=== PATIENT | male | born 1960 | race Caucasian/White ===

== ENCOUNTER 2017-03-05 01:38 | Inpatient (IN) | payer OTHER, MEDICAID ==
[2017-03-05 03:53] LABS: ADD MAN DIFF? NO
[2017-03-05] MEDS: LORAZEPAM 2 MG INJ IV ×3 (04:04→07:19)
[2017-03-05] MEDS: DILTIAZEM 25 MG INJ IV (04:04)
[2017-03-05] MEDS: SOD CHLORIDE 0.9% 1,000 ML IV ×3 (04:04→09:27)
[2017-03-05 04:25] LABS: BASOPHILS % 0.3 % (0.0-2.0); EOSINOPHILS % 0.2 % (0.0-7.0); HEMOGLOBIN 14.9 g/dl (14.0-18.0); LYMPHOCYTES # 2.3 10^3/ul (0.8-2.9); LYMPHOCYTES % 15.1 % (15.0-51.0); MEAN CORPUSCULAR HGB CONC 36.3 g/dl (32.0-37.0); MEAN CORPUSCULAR VOLUME 82.5 fl (82.0-101.0); MEAN PLATELET VOLUME 10.8 fl (7.4-10.4); MONOCYTE # 1.4 10^3/ul (0.3-0.9); MONOCYTES % 9.3 % (0.0-11.0); NEUTROPHIL # 11.4 10^3/ul (1.6-7.5); NEUTROPHILS % 74.2 % (39.0-77.0); PLATELET COUNT 311 10^3/UL (140-415); RED BLOOD COUNT 4.97 10^6/ul (4.70-6.10); RED CELL DISTRIBUTION WIDTH 13.3 % (11.5-14.5)
[2017-03-05 04:25] LABS: WHITE BLOOD COUNT 15.4 10^3/ul (4.8-10.8)
[2017-03-05 04:29] LABS: ALANINE AMINOTRANSFERASE 45 IU/L (13-69); ALBUMIN 4.1 g/dl (3.3-4.9); ALBUMIN/GLOBULIN RATIO 1.36; ALKALINE PHOSPHATASE 108 IU/L (42-121); ANION GAP 17 (8-16); ASPARTATE AMINO TRANSFERASE 29 IU/L (15-46); BILIRUBIN,INDIRECT 0.6 mg/dl (0-1.1); BILIRUBIN,TOTAL 0.6 mg/dl (0.2-1.3); BLOOD UREA NITROGEN 11 mg/dl (7-20); CALCIUM 9.2 mg/dl (8.4-10.2); CARBON DIOXIDE 24 mmol/L (21-31); CHLORIDE 85 mmol/L (97-110); CREATININE 0.72 mg/dl (0.61-1.24); GLUCOSE 294 mg/dl (70-220); POTASSIUM 3.2 mmol/L (3.5-5.1); SODIUM 123 mmol/L (135-144); TOTAL PROTEIN 7.1 g/dl (6.1-8.1)
[2017-03-05 04:37] LABS: B-TYPE NATRIURETIC PEPTIDE 3120 PG/ML (0-125)
[2017-03-05 04:41] LABS: TROPONIN-I 0.086 ng/ml (0.00-0.12)
[2017-03-05 05:09] LABS: AMPHETAMINE/METHAMPHETAMINE Negative (NEGATIVE); BARBITURATES Negative (NEGATIVE); BENZODIAZEPINES Negative (NEGATIVE); CANNABINOIDS Negative (NEGATIVE); COCAINE Negative (NEGATIVE); OPIATES Negative (NEGATIVE)
[2017-03-05] MEDS: AMIODARONE 150MG/D5W BOLUS 100 ML IV (06:00)
[2017-03-05] MEDS ORDERED: NALOXONE (0.4 MG/ML) INJ IV (06:00)
[2017-03-05] MEDS ORDERED: NITROGLYCERIN (SL) 0.4 MG TAB SL (06:00)
[2017-03-05] MEDS ORDERED: ONDANSETRON 4 MG INJ IV (06:00)
[2017-03-05] MEDS ORDERED: AMIODARONE 900 MG in DEXTROSE 5% 482 ML IV (06:00)
[2017-03-05] MEDS ORDERED: GLUCOSE GEL 15 GRAM TUBE BUCCAL (06:30)
[2017-03-05] MEDS: NALOXONE (0.4 MG/ML) INJ IV (06:30)
[2017-03-05] MEDS ORDERED: GLUCAGON 1 MG INJ IM (06:30)
[2017-03-05] MEDS ORDERED: DEXTROSE 50% 50 ML SYRINGE IV ×3 (06:30→10:30)
[2017-03-05] MEDS ORDERED: GLUCOSE GEL 15 GRAM TUBE PO ×2 (06:30)
[2017-03-05] MEDS ORDERED: METOPROLOL 5 MG INJ (06:56)
[2017-03-05] MEDS: METOPROLOL 5 MG INJ IV (07:15)
[2017-03-05] MEDS ORDERED: ESMOLOL 250 ML IV (08:00)
[2017-03-05 08:25] LABS: URIC ACID 3.8 mg/dl (3.1-7.9)
[2017-03-05] MEDS: ESMOLOL 100 MG INJ IV (08:25)
[2017-03-05] MEDS: IOHEXOL 100 ML (08:45)
[2017-03-05] MEDS: SOD CHLORIDE 0.9% 100 ML (08:45)
[2017-03-05] MEDS: IPRATROPIUM (NEB) 0.5 MG/2.5 ML AMP NEB (09:00)
[2017-03-05] MEDS: PROPOFOL 100 ML IV ×2 (09:26→21:16)
[2017-03-05] MEDS: AMIODARONE 900 MG in DEXTROSE 5% 482 ML IV (09:27)
[2017-03-05 09:51] LABS: AADO2 Arterial 588.6 mmHg (7.0-24.0); Allen Test ACCEPTAB; Arterial Base Excess -7.2 mmol/L (-3.0-3); Arterial Blood Gas Oxygen Sat 94.3 mmHG (95.0-98.0); Arterial COHb 0.3 % (0.0-3.0); Arterial Fraction of Oxyhgb 93.8 % (93.0-99.0); Arterial HCO3 19.5 mmol/L (22.0-26.0); Arterial MetHb 0.2 % (0.0-1.5); Arterial Total Hemglobin 16.5 g/dl (12.0-18.0); Arterial pCO2 43.5 mmhg (35-45); Blood Gas Low PEEP Setting 0 cmH2O; MODE VENT - AC; Site Right Radial
[2017-03-05] MEDS: INSULIN ASPART [NOVOLOG] 3 ML PEN SC ×2 (09:52→21:00)
[2017-03-05] MEDS: INSULIN GLARGINE [LANtus] 3 ML PEN SC (09:54)
[2017-03-05] MEDS: FAMOTIDINE 20 MG INJ IV ×2 (10:00→21:09)
[2017-03-05 10:35] LABS: INR 1.29; PROTIME 16.3 Sec (11.9-14.9); PT RATIO 1.3
[2017-03-05 10:36] LABS: PARTIAL THROMBOPLASTIN TIME 26.5 Sec (25.0-35.0)
[2017-03-05] MEDS: ACCU-CHEK XX ×14 (10:41→23:30)
[2017-03-05 10:48] LABS: ANION GAP 19 (8-16); BLOOD UREA NITROGEN 12 mg/dl (7-20); CALCIUM 7.8 mg/dl (8.4-10.2); CARBON DIOXIDE 20 mmol/L (21-31); CHLORIDE 87 mmol/L (97-110); CREATININE 0.82 mg/dl (0.61-1.24); POTASSIUM 3.5 mmol/L (3.5-5.1); SODIUM 122 mmol/L (135-144)
[2017-03-05 11:09] LABS: GLUCOSE 408 mg/dl (70-220)
[2017-03-05 11:51] LABS: OSMOLALITY 263 mOsm/kg (280-295)
[2017-03-05] MEDS: INSULIN HUMAN REGULAR 100 UNIT in SOD CHLORIDE 0.9% 99 ML IV (12:13)
[2017-03-05] MEDS: NORepinephrine 8MG/250 ML (PMX 250 ML IV (13:00)
[2017-03-05 13:33] LABS: AADO2 Arterial 535.6 mmHg (7.0-24.0); Allen Test ACCEPTAB; Arterial Base Excess -4.9 mmol/L (-3.0-3); Arterial Blood Gas Oxygen Sat 98.6 mmHG (95.0-98.0); Arterial COHb 0.1 % (0.0-3.0); Arterial Fraction of Oxyhgb 98.3 % (93.0-99.0); Arterial HCO3 19.5 mmol/L (22.0-26.0); Arterial MetHb 0.2 % (0.0-1.5); Arterial Total Hemglobin 16.7 g/dl (12.0-18.0); Arterial pCO2 34.7 mmhg (35-45); MODE VENT - AC; Site Right Radial
[2017-03-05] MEDS ORDERED: VANCOMYCIN IV PER PHARMACY XX (14:00)
[2017-03-05] MEDS ORDERED: NORepinephrine 8MG/250 ML (PMX 250 ML (14:01)
[2017-03-05 14:18] LABS: MAGNESIUM 2.1 mg/dl (1.7-2.5)
[2017-03-05] MEDS: PIPER-TAZO 2.25 GM (PMX) 50 ML IVPB ×3 (14:39→17:27)
[2017-03-05] MEDS ORDERED: ROCURONIUM 50 MG INJ (16:00)
[2017-03-05] MEDS ORDERED: ETOMIDATE 20 MG INJ (16:00)
[2017-03-05 16:11] LABS: POTASSIUM,URINE RANDOM 32.7 mmol/L (25-125)
[2017-03-05 16:13] LABS: SODIUM,URINE RANDOM < 13 mmol/L (30-90)
[2017-03-05 16:14] LABS: OSMOLALITY,URINE 437 mOsm/kg (250-1200)
[2017-03-05] MEDS: VANCOMYCIN 1.75 GM in NS 500 ML IVPB (17:26)
[2017-03-05] MEDS ORDERED: PROPOFOL 100 ML (21:06)
[2017-03-06] MEDS: ACCU-CHEK XX ×10 (00:30→08:33)
[2017-03-06] MEDS: PIPER-TAZO 2.25 GM (PMX) 50 ML IVPB ×5 (00:56→23:43)
[2017-03-06] MEDS: INSULIN ASPART [NOVOLOG] 3 ML PEN SC ×6 (00:56→21:00)
[2017-03-06] MEDS: PROPOFOL 100 ML IV ×6 (01:02→22:30)
[2017-03-06] MEDS ORDERED: ACCU-CHEK XX (02:00)
[2017-03-06] MEDS: NORepinephrine 8MG/250 ML (PMX 250 ML IV (02:32)
[2017-03-06] MEDS: VANCOMYCIN 1.25 GM in SODIUM CHLORIDE 0.45 % 250 ML IVPB (05:44)
[2017-03-06 06:59] LABS: ADD MAN DIFF? NO
[2017-03-06 07:09] LABS: BASOPHIL # 0.1 10^3/ul (0.0-0.1); BASOPHILS % 0.5 % (0.0-2.0); EOSINOPHILS # 0.1 10^3/ul (0.0-0.5); EOSINOPHILS % 0.3 % (0.0-7.0); HEMATOCRIT 42.8 % (42.0-52.0); HEMOGLOBIN 15.2 g/dl (14.0-18.0); LYMPHOCYTES # 2.5 10^3/ul (0.8-2.9); MEAN CORPUSCULAR HEMOGLOBIN 29.9 pg (29.0-33.0); MEAN CORPUSCULAR HGB CONC 35.5 g/dl (32.0-37.0); MEAN CORPUSCULAR VOLUME 84.3 fl (82.0-101.0); MEAN PLATELET VOLUME 10.6 fl (7.4-10.4); MONOCYTE # 0.9 10^3/ul (0.3-0.9); MONOCYTES % 5.5 % (0.0-11.0); NEUTROPHIL # 12.9 10^3/ul (1.6-7.5); NEUTROPHILS % 77.1 % (39.0-77.0); NUCLEATED RED BLOOD CELLS # 0.1 10^3/ul (0.0-0.0); NUCLEATED RED BLOOD CELLS% 0.5 /100WBC (0.0-0.0); PLATELET COUNT 229 10^3/UL (140-415); RED BLOOD COUNT 5.08 10^6/ul (4.70-6.10); RED CELL DISTRIBUTION WIDTH 13.9 % (11.5-14.5)
[2017-03-06 07:09] LABS: WHITE BLOOD COUNT 16.8 10^3/ul (4.8-10.8)
[2017-03-06] MEDS: FAMOTIDINE 20 MG INJ IV ×2 (08:34→21:02)
[2017-03-06] MEDS: ENOXAPARIN 40 MG/0.4 ML SYG SC ×2 (08:39→21:05)
[2017-03-06] MEDS ORDERED: ENOXAPARIN 40 MG/0.4 ML SYG SC (09:00)
[2017-03-06 09:03] LABS: ALBUMIN 3.2 g/dl (3.3-4.9); ALKALINE PHOSPHATASE 112 IU/L (42-121); ANION GAP 16 (8-16); BILIRUBIN,INDIRECT 0.7 mg/dl (0-1.1); BILIRUBIN,TOTAL 0.9 mg/dl (0.2-1.3); BLOOD UREA NITROGEN 16 mg/dl (7-20); CALCIUM 8.4 mg/dl (8.4-10.2); CARBON DIOXIDE 23 mmol/L (21-31); CHLORIDE 97 mmol/L (97-110); CREATININE 1.09 mg/dl (0.61-1.24); GLUCOSE 103 mg/dl (70-220); MAGNESIUM 2.2 mg/dl (1.7-2.5); SODIUM 133 mmol/L (135-144); TOTAL PROTEIN 6.1 g/dl (6.1-8.1)
[2017-03-06 09:20] LABS: POTASSIUM 2.9 mmol/L (3.5-5.1)
[2017-03-06 09:28] LABS: CHOL/HDL RATIO 6.8 RATIO; HDL CHOLESTEROL 20 mg/dl (28-71); LDL CHOLESTEROL,CALCULATED 84 mg/dl; TRIGLYCERIDES 161 mg/dl (0-149)
[2017-03-06 09:28] LABS: CHOLESTEROL 136 mg/dl (100-200)
[2017-03-06] MEDS: INSULIN GLARGINE [LANtus] 3 ML PEN SC (09:43)
[2017-03-06 10:58] LABS: AADO2 Arterial 259.9 mmHg (7.0-24.0); Allen Test ACCEPTAB; Arterial Base Excess 0 mmol/L (-3.0-3); Arterial Blood Gas Oxygen Sat 98.5 mmHG (95.0-98.0); Arterial COHb 0.3 % (0.0-3.0); Arterial Fraction of Oxyhgb 98.1 % (93.0-99.0); Arterial MetHb 0.1 % (0.0-1.5); MODE VENT - AC; Site Right Radial
[2017-03-06] MEDS: POTASSIUM CHLORIDE 20 MEQ in SOD CHLORIDE 0.9% 100 ML IVPB (11:02)
[2017-03-06] MEDS ORDERED: SOD CHLORIDE 0.45% IVPB (13:00)
[2017-03-06] MEDS ORDERED: POTASSIUM CHLORIDE 20 MEQ POWDER FOR ORAL SOLN NGT (13:00)
[2017-03-06] MEDS ORDERED: POTASSIUM CHLORIDE IVPB (13:00)
[2017-03-06] MEDS: POTASSIUM CHLORIDE 20 MEQ POWDER FOR ORAL SOLN NGT (13:22)
[2017-03-06] MEDS: SOD CHLORIDE 0.45% IVPB (14:09)
[2017-03-06] MEDS: POTASSIUM CHLORIDE IVPB (14:09)
[2017-03-06 14:19] LABS: HEMOGLOBIN A1C 10.5 % (0-5.9)
[2017-03-06 15:07] LABS: ALANINE AMINOTRANSFERASE 4067 IU/L (13-69); ASPARTATE AMINO TRANSFERASE 6514 IU/L (15-46)
[2017-03-06] MEDS: LIDOCAINE 1% (MPF) 5 ML VIAL SC (16:11)
[2017-03-06] MEDS: DIGOXIN 500 MCG INJ IV (16:56)
[2017-03-06] MEDS: VANCOMYCIN 1 GM (PMX) 250 ML IVPB (18:00)
[2017-03-06 19:57] LABS: HEMOGLOBIN A1C 10.7 % (0-5.9)
[2017-03-07] MEDS: INSULIN ASPART [NOVOLOG] 3 ML PEN SC ×6 (00:52→23:38)
[2017-03-07] MEDS: ACCU-CHEK XX (02:00)
[2017-03-07] MEDS: PROPOFOL 100 ML IV ×3 (02:25→11:26)
[2017-03-07 05:49] LABS: ADD MAN DIFF? NO
[2017-03-07] MEDS: VANCOMYCIN 1 GM (PMX) 250 ML IVPB (06:00)
[2017-03-07 06:08] LABS: BASOPHILS % 0.3 % (0.0-2.0); EOSINOPHILS # 0.1 10^3/ul (0.0-0.5); EOSINOPHILS % 1.1 % (0.0-7.0); HEMATOCRIT 37.1 % (42.0-52.0); HEMOGLOBIN 13.3 g/dl (14.0-18.0); LYMPHOCYTES # 1.3 10^3/ul (0.8-2.9); LYMPHOCYTES % 9.7 % (15.0-51.0); MEAN CORPUSCULAR HEMOGLOBIN 31.4 pg (29.0-33.0); MEAN CORPUSCULAR HGB CONC 35.8 g/dl (32.0-37.0); MEAN CORPUSCULAR VOLUME 87.7 fl (82.0-101.0); MEAN PLATELET VOLUME 11.1 fl (7.4-10.4); MONOCYTE # 0.7 10^3/ul (0.3-0.9); MONOCYTES % 5.1 % (0.0-11.0); NEUTROPHIL # 10.7 10^3/ul (1.6-7.5); NEUTROPHILS % 82.4 % (39.0-77.0); NUCLEATED RED BLOOD CELLS # 0.1 10^3/ul (0.0-0.0); NUCLEATED RED BLOOD CELLS% 0.4 /100WBC (0.0-0.0); PLATELET COUNT 170 10^3/UL (140-415); RED BLOOD COUNT 4.23 10^6/ul (4.70-6.10); RED CELL DISTRIBUTION WIDTH 14.9 % (11.5-14.5)
[2017-03-07 06:16] LABS: ALBUMIN 2.8 g/dl (3.3-4.9); ALBUMIN/GLOBULIN RATIO 1.03; ALKALINE PHOSPHATASE 131 IU/L (42-121); ANION GAP 11 (8-16); BILIRUBIN,INDIRECT 0.5 mg/dl (0-1.1); BILIRUBIN,TOTAL 0.7 mg/dl (0.2-1.3); BLOOD UREA NITROGEN 15 mg/dl (7-20); CALCIUM 7.4 mg/dl (8.4-10.2); CARBON DIOXIDE 24 mmol/L (21-31); CHLORIDE 98 mmol/L (97-110); CREATININE 0.76 mg/dl (0.61-1.24); GLUCOSE 109 mg/dl (70-220); MAGNESIUM 2.3 mg/dl (1.7-2.5); POTASSIUM 3.2 mmol/L (3.5-5.1); SODIUM 130 mmol/L (135-144); TOTAL PROTEIN 5.5 g/dl (6.1-8.1)
[2017-03-07 06:27] LABS: VANCOMYCIN,TROUGH 22.9 ug/ml (10.0-20.0)
[2017-03-07] MEDS: PIPER-TAZO 2.25 GM (PMX) 50 ML IVPB ×4 (06:45→23:38)
[2017-03-07 07:26] LABS: ALANINE AMINOTRANSFERASE 3579 IU/L (13-69); ASPARTATE AMINO TRANSFERASE 2694 IU/L (15-46)
[2017-03-07] MEDS: FAMOTIDINE 20 MG INJ IV ×2 (08:55→20:34)
[2017-03-07] MEDS: ENOXAPARIN 40 MG/0.4 ML SYG SC ×2 (09:00→20:51)
[2017-03-07] MEDS: FENTAnyl (DRIP) 1000 mcg/100mL 100 ML IV (10:20)
[2017-03-07] MEDS: POTASSIUM CHLORIDE 50 ML IVPB ×2 (10:33→13:32)
[2017-03-07] MEDS: DIGOXIN 500 MCG INJ IV (13:23)
[2017-03-07 15:29] LABS: AADO2 Arterial 258.1 mmHg (7.0-24.0); Arterial Base Excess -2.6 mmol/L (-3.0-3); Arterial Blood Gas Oxygen Sat 90.6 mmHG (95.0-98.0); Arterial COHb 0.2 % (0.0-3.0); Arterial Fraction of Oxyhgb 90.2 % (93.0-99.0); Arterial HCO3 21.5 mmol/L (22.0-26.0); Arterial MetHb 0.2 % (0.0-1.5); Arterial Total Hemglobin 14.8 g/dl (12.0-18.0); Arterial pCO2 35.1 mmhg (35-45); MODE MASK - VENTI; Site Right Brachial
[2017-03-07] MEDS: VANCOMYCIN 1 GM 250 ML IVPB (20:33)
[2017-03-08] MEDS: ACCU-CHEK XX (02:00)
[2017-03-08] MEDS: PIPER-TAZO 2.25 GM (PMX) 50 ML IVPB ×4 (05:31→23:21)
[2017-03-08] MEDS: INSULIN ASPART [NOVOLOG] 3 ML PEN SC ×4 (05:33→23:26)
[2017-03-08 05:47] LABS: ADD MAN DIFF? NO
[2017-03-08 05:56] LABS: WHITE BLOOD COUNT 13.5 10^3/ul (4.8-10.8)
[2017-03-08 05:56] LABS: BASOPHIL # 0.1 10^3/ul (0.0-0.1); BASOPHILS % 0.4 % (0.0-2.0); EOSINOPHILS # 0.1 10^3/ul (0.0-0.5); EOSINOPHILS % 0.8 % (0.0-7.0); HEMATOCRIT 38.7 % (42.0-52.0); HEMOGLOBIN 13.5 g/dl (14.0-18.0); LYMPHOCYTES % 7.7 % (15.0-51.0); MEAN CORPUSCULAR HEMOGLOBIN 30.3 pg (29.0-33.0); MEAN CORPUSCULAR HGB CONC 34.9 g/dl (32.0-37.0); MEAN PLATELET VOLUME 9.9 fl (7.4-10.4); MONOCYTE # 0.9 10^3/ul (0.3-0.9); MONOCYTES % 6.9 % (0.0-11.0); NEUTROPHIL # 11.2 10^3/ul (1.6-7.5); NEUTROPHILS % 83.1 % (39.0-77.0); NUCLEATED RED BLOOD CELLS% 0.1 /100WBC (0.0-0.0); PLATELET COUNT 150 10^3/UL (140-415); RED BLOOD COUNT 4.45 10^6/ul (4.70-6.10)
[2017-03-08 06:27] LABS: MAGNESIUM 2.2 mg/dl (1.7-2.5)
[2017-03-08 06:27] LABS: PHOSPHORUS 3.5 mg/dl (2.5-4.9)
[2017-03-08 06:31] LABS: ALBUMIN 3.3 g/dl (3.3-4.9); ALBUMIN/GLOBULIN RATIO 1.06; ALKALINE PHOSPHATASE 195 IU/L (42-121); ANION GAP 14 (8-16); BILIRUBIN,INDIRECT 1.1 mg/dl (0-1.1); BLOOD UREA NITROGEN 14 mg/dl (7-20); CALCIUM 8.5 mg/dl (8.4-10.2); CARBON DIOXIDE 26 mmol/L (21-31); CHLORIDE 102 mmol/L (97-110); CREATININE 0.68 mg/dl (0.61-1.24); GLUCOSE 122 mg/dl (70-220); POTASSIUM 3.6 mmol/L (3.5-5.1); SODIUM 138 mmol/L (135-144); TOTAL PROTEIN 6.4 g/dl (6.1-8.1)
[2017-03-08 07:39] LABS: ALANINE AMINOTRANSFERASE 4491 IU/L (13-69); ASPARTATE AMINO TRANSFERASE 2349 IU/L (15-46)
[2017-03-08 07:54] LABS: CREATINE KINASE 69 IU/L (23-200)
[2017-03-08 08:06] LABS: CK INDEX 1.3; TROPONIN-I 0.052 ng/ml (0.00-0.12)
[2017-03-08 08:11] LABS: CK-MB 0.91 ng/ml (0.0-2.4)
[2017-03-08] MEDS: FAMOTIDINE 20 MG INJ IV ×2 (08:31→20:25)
[2017-03-08] MEDS: LISINOPRIL 5 MG TAB PO ×2 (08:31→20:26)
[2017-03-08 08:44] LABS: AADO2 Arterial 603.2 mmHg (7.0-24.0); Arterial Base Excess -3.3 mmol/L (-3.0-3); Arterial Blood Gas Oxygen Sat 95.9 mmHG (95.0-98.0); Arterial COHb 0.1 % (0.0-3.0); Arterial Fraction of Oxyhgb 95.6 % (93.0-99.0); Arterial HCO3 19.5 mmol/L (22.0-26.0); Arterial MetHb 0.2 % (0.0-1.5); Arterial Total Hemglobin 14.4 g/dl (12.0-18.0); Arterial pCO2 29.3 mmhg (35-45); MODE MASK - NRB; Site LB
[2017-03-08] MEDS: ENOXAPARIN 40 MG/0.4 ML SYG SC ×2 (09:24→20:29)
[2017-03-08] MEDS ORDERED: POTASSIUM CHLORIDE 30 MEQ in SOD CHLORIDE 0.9% 150 ML IVPB (10:00)
[2017-03-08] MEDS ORDERED: POTASSIUM CHLORIDE 50 ML IVPB (10:00)
[2017-03-08] MEDS: KETOROLAC 30 MG INJ IV ×2 (10:54→23:17)
[2017-03-08] MEDS: POTASSIUM CHLORIDE 20 MEQ POWDER FOR ORAL SOLN NGT (12:15)
[2017-03-08] MEDS: DIGOXIN 500 MCG INJ IV (12:16)
[2017-03-08] MEDS: traMADol 50 MG TAB PO (12:16)
[2017-03-08] MEDS: VANCOMYCIN 1 GM 250 ML IVPB (20:25)
[2017-03-08] MEDS: LORAZEPAM 2 MG INJ IV (20:25)
[2017-03-09] MEDS: KETOROLAC 30 MG INJ IV ×2 (00:48→07:56)
[2017-03-09] MEDS: ACCU-CHEK XX (02:00)
[2017-03-09 05:31] LABS: ADD MAN DIFF? NO
[2017-03-09 05:33] LABS: WHITE BLOOD COUNT 10.1 10^3/ul (4.8-10.8)
[2017-03-09 05:33] LABS: BASOPHILS % 0.3 % (0.0-2.0); EOSINOPHILS # 0.2 10^3/ul (0.0-0.5); EOSINOPHILS % 2.3 % (0.0-7.0); HEMATOCRIT 38.5 % (42.0-52.0); HEMOGLOBIN 13.2 g/dl (14.0-18.0); LYMPHOCYTES # 1.4 10^3/ul (0.8-2.9); LYMPHOCYTES % 14.2 % (15.0-51.0); MEAN CORPUSCULAR HEMOGLOBIN 29.9 pg (29.0-33.0); MEAN CORPUSCULAR HGB CONC 34.3 g/dl (32.0-37.0); MEAN CORPUSCULAR VOLUME 87.3 fl (82.0-101.0); MEAN PLATELET VOLUME 9.9 fl (7.4-10.4); MONOCYTE # 1.1 10^3/ul (0.3-0.9); MONOCYTES % 10.5 % (0.0-11.0); NEUTROPHIL # 7.2 10^3/ul (1.6-7.5); NEUTROPHILS % 71.1 % (39.0-77.0); PLATELET COUNT 135 10^3/UL (140-415); RED BLOOD COUNT 4.41 10^6/ul (4.70-6.10); RED CELL DISTRIBUTION WIDTH 14.7 % (11.5-14.5)
[2017-03-09] MEDS: traMADol 50 MG TAB PO ×3 (05:38→23:32)
[2017-03-09] MEDS: INSULIN ASPART [NOVOLOG] 3 ML PEN SC ×5 (05:40→21:00)
[2017-03-09 06:05] LABS: CREATINE KINASE 41 IU/L (23-200)
[2017-03-09 06:09] LABS: DIGOXIN 0.5 ng/ml (1.0-2.0)
[2017-03-09 06:13] LABS: B-TYPE NATRIURETIC PEPTIDE 853 PG/ML (0-125)
[2017-03-09] MEDS: PIPER-TAZO 2.25 GM (PMX) 50 ML IVPB ×4 (06:16→23:38)
[2017-03-09 06:18] LABS: ALBUMIN 3.3 g/dl (3.3-4.9); ALBUMIN/GLOBULIN RATIO 1.13; ALKALINE PHOSPHATASE 245 IU/L (42-121); ANION GAP 15 (8-16); ASPARTATE AMINO TRANSFERASE 713 IU/L (15-46); BILIRUBIN,TOTAL 1.3 mg/dl (0.2-1.3); BLOOD UREA NITROGEN 16 mg/dl (7-20); CALCIUM 8.4 mg/dl (8.4-10.2); CARBON DIOXIDE 23 mmol/L (21-31); CHLORIDE 99 mmol/L (97-110); CK INDEX 1.7; CREATININE 0.64 mg/dl (0.61-1.24); GLUCOSE 168 mg/dl (70-220); MAGNESIUM 2.3 mg/dl (1.7-2.5); POTASSIUM 3.8 mmol/L (3.5-5.1); SODIUM 133 mmol/L (135-144); TOTAL PROTEIN 6.2 g/dl (6.1-8.1); TROPONIN-I 0.048 ng/ml (0.00-0.12)
[2017-03-09 06:24] LABS: CK-MB 0.69 ng/ml (0.0-2.4)
[2017-03-09 06:26] LABS: ALANINE AMINOTRANSFERASE 2834 IU/L (13-69)
[2017-03-09 08:22] LABS: AADO2 Arterial 308.4 mmHg (7.0-24.0); Allen Test ACCEPTAB; Arterial Base Excess -0.1 mmol/L (-3.0-3); Arterial Blood Gas Oxygen Sat 96.3 mmHG (95.0-98.0); Arterial COHb 0.6 % (0.0-3.0); Arterial Fraction of Oxyhgb 95.6 % (93.0-99.0); Arterial HCO3 23.6 mmol/L (22.0-26.0); Arterial MetHb 0.1 % (0.0-1.5); Arterial Total Hemglobin 14.8 g/dl (12.0-18.0); Arterial pCO2 35.5 mmhg (35-45); MODE HFNC; Site Right Radial
[2017-03-09] MEDS: LISINOPRIL 5 MG TAB PO ×2 (09:12→21:27)
[2017-03-09] MEDS: FAMOTIDINE 20 MG INJ IV ×2 (09:12→21:27)
[2017-03-09] MEDS: ENOXAPARIN 40 MG/0.4 ML SYG SC ×2 (09:13→21:33)
[2017-03-09] MEDS: LIDOCAINE 5% PATCH TD (13:32)
[2017-03-09] MEDS: DIGOXIN 500 MCG INJ IV (13:32)
[2017-03-09] MEDS: ASPIRIN (EC) 81 MG TAB PO (15:42)
[2017-03-10] MEDS: ACCU-CHEK XX (02:00)
[2017-03-10] MEDS: traMADol 50 MG TAB PO ×2 (05:40→15:23)
[2017-03-10] MEDS: PIPER-TAZO 2.25 GM (PMX) 50 ML IVPB ×4 (05:40→23:56)
[2017-03-10] MEDS: ASPIRIN (EC) 81 MG TAB PO (08:25)
[2017-03-10] MEDS: LIDOCAINE 5% PATCH TD (08:25)
[2017-03-10] MEDS: FAMOTIDINE 20 MG INJ IV ×2 (08:25→20:05)
[2017-03-10] MEDS: LISINOPRIL 5 MG TAB PO ×2 (08:26→20:05)
[2017-03-10] MEDS: INSULIN ASPART [NOVOLOG] 3 ML PEN SC ×4 (08:32→20:15)
[2017-03-10] MEDS: ENOXAPARIN 40 MG/0.4 ML SYG SC ×2 (08:33→20:07)
[2017-03-10] MEDS: POLYETHYLENE GLYCOL 17 GM PACKET PO (11:39)
[2017-03-10] MEDS: DOCUSATE SODIUM 100 MG CAP PO (11:39)
[2017-03-10] MEDS: DIGOXIN 500 MCG INJ IV (13:15)
[2017-03-11] MEDS: ACCU-CHEK XX (01:13)
[2017-03-11] MEDS: PIPER-TAZO 2.25 GM (PMX) 50 ML IVPB ×3 (05:28→17:49)
[2017-03-11 07:50] LABS: ADD MAN DIFF? NO
[2017-03-11 07:54] LABS: BASOPHIL # 0.1 10^3/ul (0.0-0.1); BASOPHILS % 0.7 % (0.0-2.0); EOSINOPHILS # 0.4 10^3/ul (0.0-0.5); EOSINOPHILS % 3.6 % (0.0-7.0); HEMATOCRIT 41.3 % (42.0-52.0); HEMOGLOBIN 13.9 g/dl (14.0-18.0); LYMPHOCYTES # 1.7 10^3/ul (0.8-2.9); MEAN CORPUSCULAR HEMOGLOBIN 29.8 pg (29.0-33.0); MEAN CORPUSCULAR HGB CONC 33.7 g/dl (32.0-37.0); MEAN CORPUSCULAR VOLUME 88.4 fl (82.0-101.0); MEAN PLATELET VOLUME 9.6 fl (7.4-10.4); MONOCYTE # 1.1 10^3/ul (0.3-0.9); MONOCYTES % 10.2 % (0.0-11.0); NEUTROPHIL # 6.8 10^3/ul (1.6-7.5); NEUTROPHILS % 65.4 % (39.0-77.0); PLATELET COUNT 138 10^3/UL (140-415); RED BLOOD COUNT 4.67 10^6/ul (4.70-6.10); RED CELL DISTRIBUTION WIDTH 14.8 % (11.5-14.5)
[2017-03-11 07:54] LABS: WHITE BLOOD COUNT 10.4 10^3/ul (4.8-10.8)
[2017-03-11] MEDS: FAMOTIDINE 20 MG INJ IV ×2 (08:32→20:15)
[2017-03-11] MEDS: ASPIRIN (EC) 81 MG TAB PO (08:32)
[2017-03-11] MEDS: LISINOPRIL 5 MG TAB PO ×2 (08:33→20:19)
[2017-03-11] MEDS: POLYETHYLENE GLYCOL 17 GM PACKET PO (08:33)
[2017-03-11] MEDS: LIDOCAINE 5% PATCH TD (08:34)
[2017-03-11 08:38] LABS: MAGNESIUM 1.6 mg/dl (1.7-2.5)
[2017-03-11 08:44] LABS: ALBUMIN 3.5 g/dl (3.3-4.9); ALBUMIN/GLOBULIN RATIO 1.09; ALKALINE PHOSPHATASE 181 IU/L (42-121); ANION GAP 16 (8-16); ASPARTATE AMINO TRANSFERASE 116 IU/L (15-46); BILIRUBIN,INDIRECT 0.7 mg/dl (0-1.1); BILIRUBIN,TOTAL 0.7 mg/dl (0.2-1.3); BLOOD UREA NITROGEN 6 mg/dl (7-20); CARBON DIOXIDE 24 mmol/L (21-31); CHLORIDE 101 mmol/L (97-110); GLUCOSE 172 mg/dl (70-220); POTASSIUM 4.1 mmol/L (3.5-5.1); SODIUM 137 mmol/L (135-144); TOTAL PROTEIN 6.7 g/dl (6.1-8.1)
[2017-03-11] MEDS: ENOXAPARIN 40 MG/0.4 ML SYG SC ×2 (08:44→20:24)
[2017-03-11] MEDS: INSULIN GLARGINE [LANtus] 3 ML PEN SC (08:44)
[2017-03-11] MEDS: INSULIN ASPART [NOVOLOG] 3 ML PEN SC ×4 (08:44→20:36)
[2017-03-11 08:54] LABS: ALANINE AMINOTRANSFERASE 1298 IU/L (13-69)
[2017-03-11] MEDS: traMADol 50 MG TAB PO (11:09)
[2017-03-11] MEDS: DIGOXIN 500 MCG INJ IV (12:07)
[2017-03-11] MEDS: MAGNESIUM SULFATE 2 GM/50 ML 50 ML IVPB (16:43)
[2017-03-11] MEDS: FUROSEMIDE 20 MG TAB PO (17:51)
[2017-03-12] MEDS: PIPER-TAZO 2.25 GM (PMX) 50 ML IVPB ×2 (01:22→05:17)
[2017-03-12] MEDS: ACCU-CHEK XX ×2 (02:00→23:06)
[2017-03-12] MEDS: FUROSEMIDE 20 MG TAB PO (05:20)
[2017-03-12 06:51] LABS: ADD MAN DIFF? NO
[2017-03-12 06:56] LABS: BASOPHIL # 0.1 10^3/ul (0.0-0.1); BASOPHILS % 0.9 % (0.0-2.0); EOSINOPHILS # 0.4 10^3/ul (0.0-0.5); EOSINOPHILS % 3.6 % (0.0-7.0); HEMATOCRIT 39.6 % (42.0-52.0); HEMOGLOBIN 13.3 g/dl (14.0-18.0); LYMPHOCYTES # 2.2 10^3/ul (0.8-2.9); LYMPHOCYTES % 19.5 % (15.0-51.0); MEAN CORPUSCULAR HEMOGLOBIN 30.3 pg (29.0-33.0); MEAN CORPUSCULAR HGB CONC 33.6 g/dl (32.0-37.0); MEAN CORPUSCULAR VOLUME 90.2 fl (82.0-101.0); MONOCYTE # 1.1 10^3/ul (0.3-0.9); MONOCYTES % 10.2 % (0.0-11.0); NEUTROPHIL # 6.9 10^3/ul (1.6-7.5); NEUTROPHILS % 62.4 % (39.0-77.0); PLATELET COUNT 131 10^3/UL (140-415); RED BLOOD COUNT 4.39 10^6/ul (4.70-6.10); RED CELL DISTRIBUTION WIDTH 14.7 % (11.5-14.5)
[2017-03-12 06:56] LABS: WHITE BLOOD COUNT 11.1 10^3/ul (4.8-10.8)
[2017-03-12 07:27] LABS: MAGNESIUM 1.6 mg/dl (1.7-2.5)
[2017-03-12 07:46] LABS: ALANINE AMINOTRANSFERASE 870 IU/L (13-69); ALBUMIN 3.5 g/dl (3.3-4.9); ALBUMIN/GLOBULIN RATIO 1.16; ALKALINE PHOSPHATASE 152 IU/L (42-121); ANION GAP 16 (8-16); ASPARTATE AMINO TRANSFERASE 69 IU/L (15-46); BILIRUBIN,INDIRECT 0.3 mg/dl (0-1.1); BILIRUBIN,TOTAL 0.3 mg/dl (0.2-1.3); BLOOD UREA NITROGEN 15 mg/dl (7-20); CALCIUM 9.4 mg/dl (8.4-10.2); CARBON DIOXIDE 26 mmol/L (21-31); CHLORIDE 101 mmol/L (97-110); CREATININE 0.75 mg/dl (0.61-1.24); GLUCOSE 209 mg/dl (70-220); POTASSIUM 4.2 mmol/L (3.5-5.1); SODIUM 139 mmol/L (135-144); TOTAL PROTEIN 6.5 g/dl (6.1-8.1)
[2017-03-12] MEDS: POLYETHYLENE GLYCOL 17 GM PACKET PO (08:25)
[2017-03-12] MEDS: FAMOTIDINE 20 MG INJ IV ×2 (08:25→20:21)
[2017-03-12] MEDS: ASPIRIN (EC) 81 MG TAB PO (08:25)
[2017-03-12] MEDS: LIDOCAINE 5% PATCH TD (08:26)
[2017-03-12] MEDS: traMADol 50 MG TAB PO (08:30)
[2017-03-12] MEDS: LISINOPRIL 5 MG TAB PO ×2 (08:31→20:21)
[2017-03-12] MEDS: INSULIN ASPART [NOVOLOG] 3 ML PEN SC ×4 (08:38→20:21)
[2017-03-12] MEDS: ENOXAPARIN 40 MG/0.4 ML SYG SC (08:38)
[2017-03-12] MEDS: INSULIN GLARGINE [LANtus] 3 ML PEN SC (08:39)
[2017-03-12] MEDS: MAGNESIUM SULFATE 3 GM in DEXTROSE 5% 100 ML IVPB ×2 (12:50→21:21)
[2017-03-12] MEDS: DIGOXIN 0.125 MG TAB PO (12:52)
[2017-03-12] MEDS: FUROSEMIDE 20 MG INJ IV ×2 (12:57→17:51)
[2017-03-13] MEDS: LEVOFLOXACIN 500 MG TAB PO (05:46)
[2017-03-13] MEDS: FUROSEMIDE 20 MG INJ IV ×2 (05:47→18:08)
[2017-03-13] MEDS: ASPIRIN (EC) 81 MG TAB PO (08:23)
[2017-03-13] MEDS: FAMOTIDINE 20 MG INJ IV ×2 (08:23→20:04)
[2017-03-13] MEDS: LISINOPRIL 5 MG TAB PO ×2 (08:24→20:05)
[2017-03-13] MEDS: INSULIN GLARGINE [LANtus] 3 ML PEN SC (08:34)
[2017-03-13] MEDS: INSULIN ASPART [NOVOLOG] 3 ML PEN SC ×5 (08:35→20:31)
[2017-03-13] MEDS: POLYETHYLENE GLYCOL 17 GM PACKET PO (08:35)
[2017-03-13] MEDS: LIDOCAINE 5% PATCH TD (08:36)
[2017-03-13] MEDS: DIGOXIN 0.125 MG TAB PO (12:24)
[2017-03-13 15:33] LABS: ADD MAN DIFF? NO
[2017-03-13 15:34] LABS: WHITE BLOOD COUNT 8.5 10^3/ul (4.8-10.8)
[2017-03-13 15:34] LABS: BASOPHIL # 0.1 10^3/ul (0.0-0.1); BASOPHILS % 0.8 % (0.0-2.0); EOSINOPHILS # 0.3 10^3/ul (0.0-0.5); EOSINOPHILS % 3.6 % (0.0-7.0); HEMATOCRIT 38.8 % (42.0-52.0); HEMOGLOBIN 12.9 g/dl (14.0-18.0); LYMPHOCYTES # 1.8 10^3/ul (0.8-2.9); LYMPHOCYTES % 20.7 % (15.0-51.0); MEAN CORPUSCULAR HEMOGLOBIN 29.8 pg (29.0-33.0); MEAN CORPUSCULAR HGB CONC 33.2 g/dl (32.0-37.0); MEAN CORPUSCULAR VOLUME 89.6 fl (82.0-101.0); MEAN PLATELET VOLUME 9.8 fl (7.4-10.4); MONOCYTE # 0.9 10^3/ul (0.3-0.9); MONOCYTES % 10.3 % (0.0-11.0); NEUTROPHIL # 5.3 10^3/ul (1.6-7.5); NEUTROPHILS % 61.9 % (39.0-77.0); PLATELET COUNT 160 10^3/UL (140-415); RED BLOOD COUNT 4.33 10^6/ul (4.70-6.10); RED CELL DISTRIBUTION WIDTH 14.5 % (11.5-14.5)
[2017-03-13 15:54] LABS: ALANINE AMINOTRANSFERASE 570 IU/L (13-69); ALBUMIN 3.5 g/dl (3.3-4.9); ALBUMIN/GLOBULIN RATIO 1.06; ALKALINE PHOSPHATASE 128 IU/L (42-121); ANION GAP 17 (8-16); ASPARTATE AMINO TRANSFERASE 46 IU/L (15-46); BILIRUBIN,INDIRECT 0.2 mg/dl (0-1.1); BILIRUBIN,TOTAL 0.2 mg/dl (0.2-1.3); BLOOD UREA NITROGEN 17 mg/dl (7-20); CALCIUM 9.5 mg/dl (8.4-10.2); CARBON DIOXIDE 29 mmol/L (21-31); CHLORIDE 99 mmol/L (97-110); CREATININE 0.67 mg/dl (0.61-1.24); GLUCOSE 226 mg/dl (70-220); SODIUM 141 mmol/L (135-144); TOTAL PROTEIN 6.8 g/dl (6.1-8.1)
[2017-03-13 16:19] LABS: MAGNESIUM 1.8 mg/dl (1.7-2.5)
[2017-03-14] MEDS: ACCU-CHEK XX (02:00)
[2017-03-14] MEDS: traMADol 50 MG TAB PO ×3 (03:17→17:34)
[2017-03-14] MEDS: FUROSEMIDE 20 MG INJ IV ×2 (04:56→17:34)
[2017-03-14] MEDS: LEVOFLOXACIN 500 MG TAB PO (04:56)
[2017-03-14] MEDS: ASPIRIN (EC) 81 MG TAB PO (08:32)
[2017-03-14] MEDS: LISINOPRIL 5 MG TAB PO ×2 (08:32→20:22)
[2017-03-14] MEDS: POLYETHYLENE GLYCOL 17 GM PACKET PO (08:33)
[2017-03-14] MEDS: INSULIN ASPART [NOVOLOG] 3 ML PEN SC ×4 (08:34→20:25)
[2017-03-14] MEDS: INSULIN GLARGINE [LANtus] 3 ML PEN SC (08:34)
[2017-03-14] MEDS: LIDOCAINE 5% PATCH TD (08:38)
[2017-03-14] MEDS: FAMOTIDINE 20 MG INJ IV (08:38)
[2017-03-14] MEDS: SPIRONOLACTONE 25 MG TAB PO (12:22)
[2017-03-14] MEDS: DIGOXIN 0.125 MG TAB PO (12:22)
[2017-03-14] MEDS: LORAZEPAM 2 MG INJ IV (22:59)
[2017-03-15] MEDS: ACCU-CHEK XX (02:13)
[2017-03-15] MEDS: INSULIN ASPART [NOVOLOG] 3 ML PEN SC ×5 (02:32→12:19)
[2017-03-15 05:09] LABS: ADD MAN DIFF? NO
[2017-03-15 05:11] LABS: BASOPHIL # 0.1 10^3/ul (0.0-0.1); BASOPHILS % 1.2 % (0.0-2.0); EOSINOPHILS # 0.3 10^3/ul (0.0-0.5); EOSINOPHILS % 3.2 % (0.0-7.0); HEMATOCRIT 37.4 % (42.0-52.0); HEMOGLOBIN 12.6 g/dl (14.0-18.0); LYMPHOCYTES # 2.1 10^3/ul (0.8-2.9); LYMPHOCYTES % 25.9 % (15.0-51.0); MEAN CORPUSCULAR HEMOGLOBIN 29.9 pg (29.0-33.0); MEAN CORPUSCULAR HGB CONC 33.7 g/dl (32.0-37.0); MEAN CORPUSCULAR VOLUME 88.8 fl (82.0-101.0); MONOCYTE # 0.9 10^3/ul (0.3-0.9); MONOCYTES % 11.3 % (0.0-11.0); NEUTROPHIL # 4.6 10^3/ul (1.6-7.5); NEUTROPHILS % 56.1 % (39.0-77.0); PLATELET COUNT 175 10^3/UL (140-415); RED BLOOD COUNT 4.21 10^6/ul (4.70-6.10); RED CELL DISTRIBUTION WIDTH 14.6 % (11.5-14.5)
[2017-03-15 05:11] LABS: WHITE BLOOD COUNT 8.2 10^3/ul (4.8-10.8)
[2017-03-15] MEDS: LEVOFLOXACIN 500 MG TAB PO (05:33)
[2017-03-15] MEDS: FUROSEMIDE 20 MG INJ IV (05:34)
[2017-03-15 05:40] LABS: ANION GAP 17 (8-16); BLOOD UREA NITROGEN 21 mg/dl (7-20); CALCIUM 9.7 mg/dl (8.4-10.2); CARBON DIOXIDE 27 mmol/L (21-31); CHLORIDE 101 mmol/L (97-110); GLUCOSE 158 mg/dl (70-220); MAGNESIUM 1.8 mg/dl (1.7-2.5); PHOSPHORUS 4.7 mg/dl (2.5-4.9); POTASSIUM 4.2 mmol/L (3.5-5.1); SODIUM 141 mmol/L (135-144)
[2017-03-15] MEDS: LISINOPRIL 10 MG TAB PO (09:05)
[2017-03-15] MEDS: ASPIRIN (EC) 81 MG TAB PO (09:05)
[2017-03-15] MEDS: SPIRONOLACTONE 25 MG TAB PO (09:05)
[2017-03-15] MEDS: POLYETHYLENE GLYCOL 17 GM PACKET PO (09:05)
[2017-03-15] MEDS: FAMOTIDINE 20 MG TAB PO (09:05)
[2017-03-15] MEDS: INSULIN GLARGINE [LANtus] 3 ML PEN SC (09:13)
[2017-03-15] MEDS: LIDOCAINE 5% PATCH TD (10:17)
[2017-03-15] MEDS: DIGOXIN 0.125 MG TAB PO (12:13)
[2017-03-15] MEDS ORDERED: FUROSEMIDE 40 MG TAB PO (18:00)
== END 2017-03-15 12:50 | disposition home or self-care (01) | DRG 308 ==
LOC: TEL 03-09 15:08 → MS1 03-13 13:44 → E/R 01:38 → ICU 07:43
PROC: 5A1945Z Respiratory Ventilation, 24-96 Consecutive Hours (ICD-10-PCS; principal; 2017-03-05)
PROC: 0BH17EZ Insertion of Endotracheal Airway into Trachea, Via Natural or Artificial Opening (ICD-10-PCS; 2017-03-05)
PROC: 02HV33Z Insertion of Infusion Device into Superior Vena Cava, Percutaneous Approach (ICD-10-PCS; 2017-03-06)
PROC: B548ZZA Ultrasonography of Superior Vena Cava, Guidance (ICD-10-PCS; 2017-03-06)
DX: I47.1 Supraventricular tachycardia (principal); J96.01 Acute respiratory failure with hypoxia; G92 Toxic encephalopathy; I50.43 Acute on chronic combined systolic (congestive) and diastolic (congestive) heart failure; E87.2 Acidosis; E87.1 Hypo-osmolality and hyponatremia; I42.9 Cardiomyopathy, unspecified; E86.0 Dehydration; E11.65 Type 2 diabetes mellitus with hyperglycemia; E87.6 Hypokalemia; F17.210 Nicotine dependence, cigarettes, uncomplicated; E66.9 Obesity, unspecified; Z68.31 Body mass index [BMI] 31.0-31.9, adult; R74.0 Nonspecific elevation of levels of transaminase and lactic acid dehydrogenase [LDH]; F11.10 Opioid abuse, uncomplicated
CPT/HCPCS: 31500; 36415; 36569; 36600; 71010; 71275; 72072; 72100; 76705; 76870; 76937; 80048; 80053; 80061; 80162; 80202; 80307; 82436; 82550; 82553; 82803; 82962; 83036; 83735; 83880; 83930; 83935; 84100; 84133; 84300; 84484; 84560; 85025; 85610; 85730; 87081; 92610; 93005; 93306; 93308; 94002; 94003; 94770; 96374; 96375; 99291-25; J1940

== ENCOUNTER 2017-03-18 04:07 | Inpatient (IN) | payer OTHER ==
[2017-03-18] MEDS: ASPIRIN 325 MG TAB PO (04:49)
[2017-03-18] MEDS: ADENOSINE 3 MG/ML SYRINGE IV (05:00)
[2017-03-18 06:08] LABS: ADD MAN DIFF? NO
[2017-03-18 06:38] LABS: BASOPHIL # 0.2 10^3/ul (0.0-0.1); BASOPHILS % 1.7 % (0.0-2.0); EOSINOPHILS # 0.3 10^3/ul (0.0-0.5); EOSINOPHILS % 3.2 % (0.0-7.0); HEMATOCRIT 37.8 % (42.0-52.0); HEMOGLOBIN 12.7 g/dl (14.0-18.0); LYMPHOCYTES # 2.7 10^3/ul (0.8-2.9); LYMPHOCYTES % 28.5 % (15.0-51.0); MEAN CORPUSCULAR HEMOGLOBIN 29.7 pg (29.0-33.0); MEAN CORPUSCULAR HGB CONC 33.6 g/dl (32.0-37.0); MEAN CORPUSCULAR VOLUME 88.5 fl (82.0-101.0); MEAN PLATELET VOLUME 9.9 fl (7.4-10.4); MONOCYTE # 0.9 10^3/ul (0.3-0.9); MONOCYTES % 9.4 % (0.0-11.0); NEUTROPHIL # 5.3 10^3/ul (1.6-7.5); PLATELET COUNT 230 10^3/UL (140-415); RED BLOOD COUNT 4.27 10^6/ul (4.70-6.10); RED CELL DISTRIBUTION WIDTH 14.3 % (11.5-14.5)
[2017-03-18 06:38] LABS: WHITE BLOOD COUNT 9.4 10^3/ul (4.8-10.8)
[2017-03-18 06:59] LABS: ANION GAP 15 (8-16); BLOOD UREA NITROGEN 8 mg/dl (7-20); CALCIUM 7.9 mg/dl (8.4-10.2); CARBON DIOXIDE 29 mmol/L (21-31); CHLORIDE 97 mmol/L (97-110); GLUCOSE 246 mg/dl (70-220); SODIUM 138 mmol/L (135-144)
[2017-03-18] MEDS ORDERED: ADENOSINE 3 MG/ML SYRINGE IV (07:00)
[2017-03-18] MEDS ORDERED: ATROPINE 1 MG/10 ML SYRINGE (07:00)
[2017-03-18 07:10] LABS: B-TYPE NATRIURETIC PEPTIDE 2440 PG/ML (0-125); TROPONIN-I 0.071 ng/ml (0.00-0.12)
[2017-03-18] MEDS: ONDANSETRON 4 MG INJ IV (07:21)
[2017-03-18] MEDS: morphine 10 MG INJ IV (07:21)
[2017-03-18] MEDS: IOHEXOL 100 ML (07:55)
[2017-03-18] MEDS: SOD CHLORIDE 0.9% 100 ML (07:55)
[2017-03-18] MEDS ORDERED: ACETAMINOPHEN 325 MG TAB PO (08:30)
[2017-03-18] MEDS ORDERED: ONDANSETRON 4 MG INJ IV ×2 (08:30→09:30)
[2017-03-18] MEDS: ASPIRIN (EC) 81 MG TAB PO (09:00)
[2017-03-18] MEDS ORDERED: VANCOMYCIN IV PER PHARMACY XX (09:00)
[2017-03-18] MEDS ORDERED: BISACODYL (EC) 5 MG TAB PO (09:30)
[2017-03-18] MEDS ORDERED: morphine 2 MG INJ IV (09:30)
[2017-03-18] MEDS ORDERED: ALBUTEROL/IPRATROPIUM (NEB) 3 ML AMP HHN (09:30)
[2017-03-18] MEDS ORDERED: NACL 0.9% 3 ML SYG IV (09:30)
[2017-03-18] MEDS ORDERED: NITROGLYCERIN (SL) 0.4 MG TAB SL (09:30)
[2017-03-18] MEDS ORDERED: GLUCAGON 1 MG INJ IM (10:00)
[2017-03-18] MEDS ORDERED: GLUCOSE GEL 15 GRAM TUBE PO ×2 (10:00)
[2017-03-18] MEDS ORDERED: DEXTROSE 50% 50 ML SYRINGE IV ×2 (10:00)
[2017-03-18] MEDS ORDERED: GLUCOSE GEL 15 GRAM TUBE BUCCAL (10:00)
[2017-03-18] MEDS: HYDROmorphONE 2 MG/ML SYG IV (10:30)
[2017-03-18] MEDS: SPIRONOLACTONE 25 MG TAB PO (10:48)
[2017-03-18] MEDS: POTASSIUM CHLORIDE (SR) 20 MEQ TAB PO (10:48)
[2017-03-18] MEDS: LISINOPRIL 10 MG TAB PO ×2 (10:49→22:05)
[2017-03-18] MEDS: FAMOTIDINE 20 MG TAB PO (10:49)
[2017-03-18] MEDS: FUROSEMIDE 40 MG TAB PO ×2 (10:50→19:23)
[2017-03-18] MEDS: HYDROCODONE/APAP (5/325) TAB PO ×3 (11:37→22:49)
[2017-03-18] MEDS: VANCOMYCIN 1.75 GM in NS 500 ML IVPB (11:38)
[2017-03-18] MEDS: SOD CHLORIDE 0.9% 1,000 ML IV (11:39)
[2017-03-18 11:57] LABS: CREATINE KINASE 63 IU/L (23-200)
[2017-03-18 12:10] LABS: CK INDEX 2.1; TROPONIN-I 0.085 ng/ml (0.00-0.12)
[2017-03-18 12:15] LABS: CK-MB 1.31 ng/ml (0.0-2.4)
[2017-03-18] MEDS: PIPER-TAZO 3.375 GM IV (PMX) 50 ML IVPB ×2 (13:34→19:19)
[2017-03-18] MEDS: INSULIN ASPART [NOVOLOG] 3 ML PEN SC ×5 (14:00→21:00)
[2017-03-18] MEDS: ALBUTEROL/IPRATROPIUM (NEB) 3 ML AMP HHN ×2 (14:42→20:00)
[2017-03-18] MEDS: DIGOXIN 0.125 MG TAB PO (16:14)
[2017-03-18 17:18] LABS: CREATINE KINASE 59 IU/L (23-200)
[2017-03-18] MEDS: HYDROmorphONE 1 MG/ML SYG IV (17:25)
[2017-03-18 17:29] LABS: CK INDEX 2.3; TROPONIN-I 0.078 ng/ml (0.00-0.12)
[2017-03-18 17:35] LABS: CK-MB 1.33 ng/ml (0.0-2.4)
[2017-03-18] MEDS: INSULIN GLARGINE [LANtus] 3 ML PEN SC (19:21)
[2017-03-18] MEDS: LORAZEPAM 0.5 MG TAB PO (22:05)
[2017-03-18] MEDS ORDERED: VANCOMYCIN 1 GM in 250 ML IVPB (23:30)
[2017-03-19] MEDS: HYDROCODONE/APAP (5/325) TAB PO ×3 (01:53→20:14)
[2017-03-19] MEDS: ACCU-CHEK XX (02:00)
[2017-03-19] MEDS: PIPER-TAZO 3.375 GM IV (PMX) 50 ML IVPB ×5 (02:08→23:19)
[2017-03-19] MEDS: morphine LIQ (10 MG/5 ML) CUP PO (02:09)
[2017-03-19] MEDS: LORAZEPAM 0.5 MG TAB PO ×2 (05:19→22:29)
[2017-03-19] MEDS: FUROSEMIDE 40 MG TAB PO ×2 (05:20→18:10)
[2017-03-19 07:27] LABS: ADD MAN DIFF? NO
[2017-03-19 07:31] LABS: BASOPHIL # 0.2 10^3/ul (0.0-0.1); BASOPHILS % 2.1 % (0.0-2.0); EOSINOPHILS # 0.3 10^3/ul (0.0-0.5); EOSINOPHILS % 3.4 % (0.0-7.0); HEMATOCRIT 38.5 % (42.0-52.0); HEMOGLOBIN 12.9 g/dl (14.0-18.0); LYMPHOCYTES # 1.9 10^3/ul (0.8-2.9); LYMPHOCYTES % 24.3 % (15.0-51.0); MEAN CORPUSCULAR HEMOGLOBIN 29.9 pg (29.0-33.0); MEAN CORPUSCULAR HGB CONC 33.5 g/dl (32.0-37.0); MEAN CORPUSCULAR VOLUME 89.1 fl (82.0-101.0); MONOCYTE # 0.7 10^3/ul (0.3-0.9); MONOCYTES % 8.8 % (0.0-11.0); NEUTROPHIL # 4.6 10^3/ul (1.6-7.5); NEUTROPHILS % 60.6 % (39.0-77.0); PLATELET COUNT 226 10^3/UL (140-415); RED BLOOD COUNT 4.32 10^6/ul (4.70-6.10); RED CELL DISTRIBUTION WIDTH 14.5 % (11.5-14.5)
[2017-03-19 07:31] LABS: WHITE BLOOD COUNT 7.7 10^3/ul (4.8-10.8)
[2017-03-19 07:57] LABS: IRON 60 ug/dl (35-150)
[2017-03-19 07:58] LABS: ALANINE AMINOTRANSFERASE 140 IU/L (13-69); ALBUMIN 3.7 g/dl (3.3-4.9); ALBUMIN/GLOBULIN RATIO 1.27; ALKALINE PHOSPHATASE 95 IU/L (42-121); ANION GAP 14 (8-16); ASPARTATE AMINO TRANSFERASE 30 IU/L (15-46); BILIRUBIN,INDIRECT 0.2 mg/dl (0-1.1); BILIRUBIN,TOTAL 0.2 mg/dl (0.2-1.3); BLOOD UREA NITROGEN 15 mg/dl (7-20); CALCIUM 9.1 mg/dl (8.4-10.2); CARBON DIOXIDE 28 mmol/L (21-31); CHLORIDE 102 mmol/L (97-110); CREATININE 0.71 mg/dl (0.61-1.24); GLUCOSE 200 mg/dl (70-220); MAGNESIUM 1.8 mg/dl (1.7-2.5); POTASSIUM 4.2 mmol/L (3.5-5.1); SODIUM 140 mmol/L (135-144); TOTAL PROTEIN 6.6 g/dl (6.1-8.1)
[2017-03-19 08:00] LABS: DIGOXIN 0.6 ng/ml (1.0-2.0)
[2017-03-19] MEDS: ALBUTEROL/IPRATROPIUM (NEB) 3 ML AMP HHN ×3 (08:05→20:00)
[2017-03-19 08:06] LABS: % IRON SATURATION 16 % SAT (22-52); TOTAL IRON BINDING CAPACITY 382 ug/dl (241-421)
[2017-03-19 08:09] LABS: B-TYPE NATRIURETIC PEPTIDE 682 PG/ML (0-125)
[2017-03-19] MEDS: SPIRONOLACTONE 25 MG TAB PO (08:28)
[2017-03-19] MEDS: FAMOTIDINE 20 MG TAB PO (08:28)
[2017-03-19] MEDS: ASPIRIN (EC) 81 MG TAB PO (08:28)
[2017-03-19] MEDS: LISINOPRIL 10 MG TAB PO ×2 (08:37→20:14)
[2017-03-19] MEDS: INSULIN ASPART [NOVOLOG] 3 ML PEN SC ×7 (09:38→20:23)
[2017-03-19] MEDS: VANCOMYCIN 1.25 GM in SODIUM CHLORIDE 0.45 % 250 ML IVPB (12:51)
[2017-03-19] MEDS: DIGOXIN 0.125 MG TAB PO (12:59)
[2017-03-19] MEDS: ACETAMINOPHEN 325 MG TAB PO (15:31)
[2017-03-19] MEDS: INSULIN GLARGINE [LANtus] 3 ML PEN SC (20:27)
[2017-03-19] MEDS: ZOLPIDEM 5 MG TAB PO (22:29)
[2017-03-20] MEDS: ACCU-CHEK XX (02:00)
[2017-03-20] MEDS: FUROSEMIDE 40 MG TAB PO ×2 (05:19→17:49)
[2017-03-20] MEDS: PIPER-TAZO 3.375 GM IV (PMX) 50 ML IVPB ×3 (05:19→17:49)
[2017-03-20] MEDS: HYDROCODONE/APAP (5/325) TAB PO ×2 (05:20→14:13)
[2017-03-20] MEDS: INSULIN ASPART [NOVOLOG] 3 ML PEN SC ×7 (07:07→20:45)
[2017-03-20] MEDS: ALBUTEROL/IPRATROPIUM (NEB) 3 ML AMP HHN ×3 (08:11→19:35)
[2017-03-20] MEDS: SPIRONOLACTONE 25 MG TAB PO (08:40)
[2017-03-20] MEDS: ASPIRIN (EC) 81 MG TAB PO (08:40)
[2017-03-20] MEDS: LISINOPRIL 10 MG TAB PO ×2 (08:40→20:50)
[2017-03-20] MEDS: FAMOTIDINE 20 MG TAB PO (08:40)
[2017-03-20 08:54] LABS: ADD MAN DIFF? NO
[2017-03-20 09:08] LABS: WHITE BLOOD COUNT 8.5 10^3/ul (4.8-10.8)
[2017-03-20 09:08] LABS: BASOPHIL # 0.1 10^3/ul (0.0-0.1); BASOPHILS % 1.5 % (0.0-2.0); EOSINOPHILS # 0.3 10^3/ul (0.0-0.5); EOSINOPHILS % 3.5 % (0.0-7.0); HEMATOCRIT 38.6 % (42.0-52.0); LYMPHOCYTES # 1.8 10^3/ul (0.8-2.9); LYMPHOCYTES % 20.7 % (15.0-51.0); MEAN CORPUSCULAR HGB CONC 33.7 g/dl (32.0-37.0); MEAN CORPUSCULAR VOLUME 89.1 fl (82.0-101.0); MEAN PLATELET VOLUME 10.5 fl (7.4-10.4); MONOCYTE # 0.8 10^3/ul (0.3-0.9); MONOCYTES % 8.9 % (0.0-11.0); NEUTROPHIL # 5.4 10^3/ul (1.6-7.5); NEUTROPHILS % 64.3 % (39.0-77.0); PLATELET COUNT 237 10^3/UL (140-415); RED BLOOD COUNT 4.33 10^6/ul (4.70-6.10); RED CELL DISTRIBUTION WIDTH 14.3 % (11.5-14.5)
[2017-03-20 09:44] LABS: ANION GAP 13 (8-16); BLOOD UREA NITROGEN 20 mg/dl (7-20); CALCIUM 10.4 mg/dl (8.4-10.2); CARBON DIOXIDE 29 mmol/L (21-31); CHLORIDE 99 mmol/L (97-110); CREATININE 0.75 mg/dl (0.61-1.24); GLUCOSE 170 mg/dl (70-220); MAGNESIUM 1.8 mg/dl (1.7-2.5); PHOSPHORUS 4.9 mg/dl (2.5-4.9); POTASSIUM 3.9 mmol/L (3.5-5.1); SODIUM 137 mmol/L (135-144)
[2017-03-20] MEDS: VANCOMYCIN 1.25 GM in SODIUM CHLORIDE 0.45 % 250 ML IVPB (11:21)
[2017-03-20] MEDS: INFLUENZA VIRUS VACCINE 0.5 ML SYG IM* (11:22)
[2017-03-20] MEDS: DIGOXIN 0.125 MG TAB PO (12:39)
[2017-03-20] MEDS: INSULIN GLARGINE [LANtus] 3 ML PEN SC (20:47)
[2017-03-21] MEDS: PIPER-TAZO 3.375 GM IV (PMX) 50 ML IVPB ×3 (00:07→12:09)
[2017-03-21] MEDS: ACCU-CHEK XX (02:00)
[2017-03-21] MEDS: HYDROCODONE/APAP (5/325) TAB PO ×2 (02:37→12:10)
[2017-03-21] MEDS: FUROSEMIDE 40 MG TAB PO (05:14)
[2017-03-21 07:15] LABS: ADD MAN DIFF? NO
[2017-03-21 07:21] LABS: WHITE BLOOD COUNT 8.4 10^3/ul (4.8-10.8)
[2017-03-21 07:21] LABS: BASOPHIL # 0.1 10^3/ul (0.0-0.1); BASOPHILS % 1.3 % (0.0-2.0); EOSINOPHILS # 0.3 10^3/ul (0.0-0.5); EOSINOPHILS % 3.3 % (0.0-7.0); HEMATOCRIT 37.8 % (42.0-52.0); HEMOGLOBIN 12.6 g/dl (14.0-18.0); LYMPHOCYTES # 1.7 10^3/ul (0.8-2.9); LYMPHOCYTES % 20.8 % (15.0-51.0); MEAN CORPUSCULAR HEMOGLOBIN 29.5 pg (29.0-33.0); MEAN CORPUSCULAR HGB CONC 33.3 g/dl (32.0-37.0); MEAN CORPUSCULAR VOLUME 88.5 fl (82.0-101.0); MONOCYTE # 0.7 10^3/ul (0.3-0.9); MONOCYTES % 8.2 % (0.0-11.0); NEUTROPHIL # 5.4 10^3/ul (1.6-7.5); NEUTROPHILS % 64.8 % (39.0-77.0); PLATELET COUNT 231 10^3/UL (140-415); RED BLOOD COUNT 4.27 10^6/ul (4.70-6.10); RED CELL DISTRIBUTION WIDTH 14.5 % (11.5-14.5)
[2017-03-21 07:48] LABS: ANION GAP 14 (8-16); BLOOD UREA NITROGEN 18 mg/dl (7-20); CALCIUM 10.3 mg/dl (8.4-10.2); CARBON DIOXIDE 30 mmol/L (21-31); CHLORIDE 99 mmol/L (97-110); CREATININE 0.71 mg/dl (0.61-1.24); GLUCOSE 238 mg/dl (70-220); MAGNESIUM 1.8 mg/dl (1.7-2.5); PHOSPHORUS 4.8 mg/dl (2.5-4.9); POTASSIUM 3.8 mmol/L (3.5-5.1); SODIUM 139 mmol/L (135-144)
[2017-03-21] MEDS: ALBUTEROL/IPRATROPIUM (NEB) 3 ML AMP HHN ×2 (07:52→13:00)
[2017-03-21] MEDS: INSULIN ASPART [NOVOLOG] 3 ML PEN SC ×4 (08:10→12:49)
[2017-03-21] MEDS: FAMOTIDINE 20 MG TAB PO (09:03)
[2017-03-21] MEDS: LISINOPRIL 10 MG TAB PO (09:03)
[2017-03-21] MEDS: SPIRONOLACTONE 25 MG TAB PO (09:03)
[2017-03-21] MEDS: ASPIRIN (EC) 81 MG TAB PO (09:03)
[2017-03-21] MEDS: DIGOXIN 0.125 MG TAB PO (12:44)
[2017-03-23 10:32] LABS: PROCALCITONIN <0.10 ng/mL (<0.10)
== END 2017-03-21 15:45 | disposition home or self-care (01) | DRG 308 ==
LOC: TEL 08:06 → E/R 04:07
PROVIDERS: Internal Medicine
DX: I47.1 Supraventricular tachycardia (principal); J18.9 Pneumonia, unspecified organism; I50.23 Acute on chronic systolic (congestive) heart failure; I11.0 Hypertensive heart disease with heart failure; I42.9 Cardiomyopathy, unspecified; E11.65 Type 2 diabetes mellitus with hyperglycemia; F17.200 Nicotine dependence, unspecified, uncomplicated; M79.89 Other specified soft tissue disorders; M54.9 Dorsalgia, unspecified; G89.29 Other chronic pain; Z91.14 Patient's other noncompliance with medication regimen
CPT/HCPCS: 71045; 71275; 72128; 80048; 80053; 80069; 80162; 82550; 82553; 82728; 82962; 83540; 83735; 83880; 84145; 84443; 84484; 85025; 87081; 90686; 93005; 94640; 94664; 96372; 96374; 96375; 99291-25

== ENCOUNTER 2017-03-24 01:27 | Emergency (ER) | payer OTHER ==
[2017-03-24] MEDS: ACETAMINOPHEN 500 MG TAB PO (05:15)
[2017-03-24] MEDS: IBUPROFEN 600 MG TAB PO (05:15)
== END 2017-03-24 05:40 | disposition home or self-care (01) ==
LOC: FTE 01:27
DX: M54.6 Pain in thoracic spine (principal); I10 Essential (primary) hypertension; F17.210 Nicotine dependence, cigarettes, uncomplicated; Z79.4 Long term (current) use of insulin; Z79.82 Long term (current) use of aspirin
CPT/HCPCS: 93005; 99283-25

== ENCOUNTER → 2017-03-24 | Emergency (ER) | payer OTHER ==
[2017-03-24] MEDS: IBUPROFEN 800 MG TAB PO (14:34)
== END | disposition home or self-care (01) ==
LOC: FTE 12:14
DX: M54.6 Pain in thoracic spine (principal); I10 Essential (primary) hypertension; F17.210 Nicotine dependence, cigarettes, uncomplicated; E11.9 Type 2 diabetes mellitus without complications; Z79.4 Long term (current) use of insulin; Z79.82 Long term (current) use of aspirin
CPT/HCPCS: 99283; Z7610

== ENCOUNTER 2017-04-26 03:40 | Inpatient (IN) | payer OTHER ==
[2017-04-26] MEDS ORDERED: DILTIAZEM 25 MG INJ (03:55)
[2017-04-26] MEDS ORDERED: CA GLUCONATE (GM) 10% 10ML INJ (03:58)
[2017-04-26] MEDS ORDERED: CA CHLORIDE 10% 10 ML SYRINGE (03:58)
[2017-04-26] MEDS ORDERED: AMIODARONE 150 MG INJ (04:01)
[2017-04-26] MEDS ORDERED: ADENOSINE 0 ML (04:01)
[2017-04-26] MEDS: SOD CHLORIDE 0.9% 1,000 ML IV (04:08)
[2017-04-26] MEDS: CALCIUM GLUCONATE 10% 1 GM in DEXTROSE 5% 100 ML IVPB (04:09)
[2017-04-26] MEDS ORDERED: ASPIRIN 81 MG TAB (04:09)
[2017-04-26] MEDS: DILTIAZEM 25 MG INJ IV (04:09)
[2017-04-26] MEDS: AMIODARONE 150 MG INJ IV (04:09)
[2017-04-26 04:29] LABS: ADD MAN DIFF? NO
[2017-04-26] MEDS: ASPIRIN 81 MG TAB PO (04:30)
[2017-04-26 04:32] LABS: BASOPHIL # 0.1 10^3/ul (0.0-0.1); BASOPHILS % 0.4 % (0.0-2.0); EOSINOPHILS % 0.2 % (0.0-7.0); HEMATOCRIT 36.2 % (42.0-52.0); HEMOGLOBIN 13.5 g/dl (14.0-18.0); LYMPHOCYTES # 2.4 10^3/ul (0.8-2.9); LYMPHOCYTES % 16.2 % (15.0-51.0); MEAN CORPUSCULAR HEMOGLOBIN 29.7 pg (29.0-33.0); MEAN CORPUSCULAR HGB CONC 37.3 g/dl (32.0-37.0); MEAN CORPUSCULAR VOLUME 79.7 fl (82.0-101.0); MEAN PLATELET VOLUME 10.7 fl (7.4-10.4); MONOCYTE # 1.3 10^3/ul (0.3-0.9); MONOCYTES % 8.6 % (0.0-11.0); NEUTROPHIL # 10.8 10^3/ul (1.6-7.5); NEUTROPHILS % 72.1 % (39.0-77.0); PLATELET COUNT 251 10^3/UL (140-415); RED BLOOD COUNT 4.54 10^6/ul (4.70-6.10); RED CELL DISTRIBUTION WIDTH 13.2 % (11.5-14.5)
[2017-04-26 04:47] LABS: INR 0.93; PROTIME 12.5 Sec (11.9-14.9)
[2017-04-26 04:52] LABS: ALANINE AMINOTRANSFERASE 45 IU/L (13-69); ALBUMIN 4.1 g/dl (3.3-4.9); ALBUMIN/GLOBULIN RATIO 1.51; ALKALINE PHOSPHATASE 65 IU/L (42-121); ANION GAP 20 (8-16); ASPARTATE AMINO TRANSFERASE 35 IU/L (15-46); BILIRUBIN,INDIRECT 0.2 mg/dl (0-1.1); BILIRUBIN,TOTAL 0.2 mg/dl (0.2-1.3); BLOOD UREA NITROGEN 26 mg/dl (7-20); CALCIUM 8.7 mg/dl (8.4-10.2); CARBON DIOXIDE 23 mmol/L (21-31); CHLORIDE 82 mmol/L (97-110); CREATININE 1.05 mg/dl (0.61-1.24); LIPASE 57 U/L (23-300); POTASSIUM 3.6 mmol/L (3.5-5.1); SODIUM 121 mmol/L (135-144); TOTAL PROTEIN 6.8 g/dl (6.1-8.1)
[2017-04-26 04:54] LABS: DIGOXIN 0.5 ng/ml (1.0-2.0)
[2017-04-26 05:03] LABS: B-TYPE NATRIURETIC PEPTIDE 5290 PG/ML (0-125)
[2017-04-26 05:09] LABS: ETHANOL < 10.0 mg/dl
[2017-04-26 05:11] LABS: GLUCOSE 403 mg/dl (70-220)
[2017-04-26 05:19] LABS: AADO2 Arterial 269.6 mmHg (7.0-24.0); Arterial Base Excess -0.6 mmol/L (-3.0-3); Arterial Blood Gas Oxygen Sat 85.3 mmHG (95.0-98.0); Arterial COHb 0.3 % (0.0-3.0); Arterial Fraction of Oxyhgb 84.9 % (93.0-99.0); Arterial HCO3 22.4 mmol/L (22.0-26.0); Arterial MetHb 0.2 % (0.0-1.5); Arterial pCO2 32.4 mmhg (35-45); Blood Gas IEPAP 15/5; Blood Gas PS 10; MODE MASK - BIPAP; Site Right Brachial
[2017-04-26] MEDS: morphine 2 MG INJ IV ×6 (05:40→23:02)
[2017-04-26] MEDS: INSULIN LISPRO 100 UNIT/ML VIAL SC (05:45)
[2017-04-26] MEDS: HEPARIN 1000 UNITS/ML 10 ML INJ IV (05:47)
[2017-04-26] MEDS: HEPARIN 25000 UNITS/250 ML 250 ML IV (05:49)
[2017-04-26] MEDS ORDERED: ONDANSETRON 4 MG INJ IV (06:00)
[2017-04-26] MEDS ORDERED: ETOMIDATE 20 MG INJ (07:00)
[2017-04-26] MEDS: ONDANSETRON 4 MG INJ IV (07:18)
[2017-04-26] MEDS: morphine 4 MG/ML VIAL IV (07:18)
[2017-04-26] MEDS ORDERED: FAMOTIDINE 20 MG TAB PO (09:00)
[2017-04-26] MEDS: FUROSEMIDE 40 MG TAB PO ×2 (09:22→18:24)
[2017-04-26] MEDS: LISINOPRIL 10 MG TAB PO ×2 (09:23→20:36)
[2017-04-26] MEDS: ASPIRIN (EC) 81 MG TAB PO (09:23)
[2017-04-26] MEDS: SPIRONOLACTONE 25 MG TAB PO (09:23)
[2017-04-26] MEDS: FAMOTIDINE 20 MG INJ IV ×2 (09:27→20:35)
[2017-04-26] MEDS: INSULIN GLARGINE [LANtus] 3 ML PEN SC (10:26)
[2017-04-26] MEDS: HEPARIN 5,000 UNIT/0.5 ML VIAL SC ×2 (11:04→20:46)
[2017-04-26 11:25] LABS: ADD UMIC NO; UR ASCORBIC ACID NEGATIVE (NEGATIVE); UR BILIRUBIN (Dip) NEGATIVE (NEGATIVE); UR BLOOD (Dip) NEGATIVE (NEGATIVE); UR CLARITY CLEAR (CLEAR); UR COLOR YELLOW (YELLOW); UR GLUCOSE (Dip) 3+ mg/dL (NEGATIVE); UR KETONES (Dip) NEGATIVE (NEGATIVE); UR LEUKOCYTE ESTERASE (Dip) NEGATIVE Leu/ul (NEGATIVE); UR NITRITE (Dip) NEGATIVE (NEGATIVE); UR SPECIFIC GRAVITY (Dip) 1.011 (1.003-1.030); UR TOTAL PROTEIN (Dip) NEGATIVE (NEGATIVE); UR UROBILINOGEN (Dip) 1+ mg/dL (NEGATIVE)
[2017-04-26 12:10] LABS: AMPHETAMINE/METHAMPHETAMINE Negative (NEGATIVE); BARBITURATES Negative (NEGATIVE); BENZODIAZEPINES Negative (NEGATIVE); CANNABINOIDS Negative (NEGATIVE); COCAINE Negative (NEGATIVE); OPIATES Positive (NEGATIVE)
[2017-04-26 12:24] LABS: HEMOGLOBIN A1C 9.8 % (0-5.9)
[2017-04-26] MEDS: DIGOXIN 0.125 MG TAB PO (13:04)
[2017-04-26] MEDS ORDERED: GLUCOSE GEL 15 GRAM TUBE BUCCAL (13:30)
[2017-04-26] MEDS ORDERED: GLUCAGON 1 MG INJ IM (13:30)
[2017-04-26] MEDS ORDERED: DEXTROSE 50% 50 ML SYRINGE IV ×2 (13:30)
[2017-04-26] MEDS ORDERED: GLUCOSE GEL 15 GRAM TUBE PO ×2 (13:30)
[2017-04-26] MEDS: ALBUTEROL/IPRATROPIUM (NEB) 3 ML AMP NEB ×3 (14:17→20:45)
[2017-04-26] MEDS: INSULIN ASPART [NOVOLOG] 3 ML PEN SC ×2 (18:14→20:53)
[2017-04-26 18:36] LABS: ADD MAN DIFF? NO
[2017-04-26 18:38] LABS: BASOPHIL # 0.1 10^3/ul (0.0-0.1); BASOPHILS % 0.4 % (0.0-2.0); EOSINOPHILS # 0.1 10^3/ul (0.0-0.5); EOSINOPHILS % 0.7 % (0.0-7.0); HEMATOCRIT 34.7 % (42.0-52.0); LYMPHOCYTES # 2.8 10^3/ul (0.8-2.9); LYMPHOCYTES % 22.8 % (15.0-51.0); MEAN CORPUSCULAR HEMOGLOBIN 29.6 pg (29.0-33.0); MEAN CORPUSCULAR HGB CONC 37.5 g/dl (32.0-37.0); MEAN PLATELET VOLUME 9.8 fl (7.4-10.4); MONOCYTE # 1.1 10^3/ul (0.3-0.9); MONOCYTES % 9.3 % (0.0-11.0); NEUTROPHIL # 7.9 10^3/ul (1.6-7.5); NEUTROPHILS % 65.1 % (39.0-77.0); NUCLEATED RED BLOOD CELLS% 0.3 /100WBC (0.0-0.0); PLATELET COUNT 229 10^3/UL (140-415); RED BLOOD COUNT 4.39 10^6/ul (4.70-6.10); RED CELL DISTRIBUTION WIDTH 13.4 % (11.5-14.5)
[2017-04-26 18:38] LABS: WHITE BLOOD COUNT 12.1 10^3/ul (4.8-10.8)
[2017-04-26 18:57] LABS: MAGNESIUM 1.8 mg/dl (1.7-2.5)
[2017-04-26 18:57] LABS: CREATINE KINASE 150 IU/L (23-200)
[2017-04-26 19:07] LABS: CK INDEX 4.6
[2017-04-26 19:17] LABS: ALANINE AMINOTRANSFERASE 52 IU/L (13-69); ALBUMIN 4.2 g/dl (3.3-4.9); ALKALINE PHOSPHATASE 73 IU/L (42-121); ANION GAP 14 (8-16); ASPARTATE AMINO TRANSFERASE 43 IU/L (15-46); BILIRUBIN,INDIRECT 0.5 mg/dl (0-1.1); BILIRUBIN,TOTAL 0.5 mg/dl (0.2-1.3); BLOOD UREA NITROGEN 18 mg/dl (7-20); CALCIUM 9.5 mg/dl (8.4-10.2); CARBON DIOXIDE 28 mmol/L (21-31); CHLORIDE 94 mmol/L (97-110); CREATININE 0.91 mg/dl (0.61-1.24); GLUCOSE 151 mg/dl (70-220); POTASSIUM 3.4 mmol/L (3.5-5.1); TOTAL PROTEIN 7.2 g/dl (6.1-8.1)
[2017-04-26 19:18] LABS: SODIUM 133 mmol/L (135-144)
[2017-04-26] MEDS: POTASSIUM CHLORIDE (SR) 20 MEQ TAB PO (20:34)
[2017-04-26] MEDS: ACETYLCYSTEINE 600 MG CAP PO (20:35)
[2017-04-27] MEDS: ALBUTEROL/IPRATROPIUM (NEB) 3 ML AMP NEB ×6 (00:05→21:04)
[2017-04-27] MEDS: ACCU-CHEK XX (02:00)
[2017-04-27] MEDS: morphine 2 MG INJ IV ×7 (03:01→23:41)
[2017-04-27] MEDS: FUROSEMIDE 40 MG TAB PO (05:01)
[2017-04-27 06:33] LABS: ADD MAN DIFF? NO
[2017-04-27 06:49] LABS: BASOPHILS % 0.4 % (0.0-2.0); EOSINOPHILS # 0.1 10^3/ul (0.0-0.5); EOSINOPHILS % 0.9 % (0.0-7.0); HEMATOCRIT 35.7 % (42.0-52.0); HEMOGLOBIN 13.2 g/dl (14.0-18.0); LYMPHOCYTES # 2.2 10^3/ul (0.8-2.9); LYMPHOCYTES % 21.8 % (15.0-51.0); MEAN CORPUSCULAR HEMOGLOBIN 29.8 pg (29.0-33.0); MEAN CORPUSCULAR VOLUME 80.6 fl (82.0-101.0); MEAN PLATELET VOLUME 9.9 fl (7.4-10.4); MONOCYTES % 9.6 % (0.0-11.0); NEUTROPHIL # 6.6 10^3/ul (1.6-7.5); NEUTROPHILS % 65.3 % (39.0-77.0); NUCLEATED RED BLOOD CELLS% 0.2 /100WBC (0.0-0.0); PLATELET COUNT 236 10^3/UL (140-415); RED BLOOD COUNT 4.43 10^6/ul (4.70-6.10); RED CELL DISTRIBUTION WIDTH 13.7 % (11.5-14.5)
[2017-04-27 06:59] LABS: INR 1.01; PROTIME 13.4 Sec (11.9-14.9)
[2017-04-27 07:05] LABS: ALANINE AMINOTRANSFERASE 51 IU/L (13-69); ALBUMIN 4.1 g/dl (3.3-4.9); ALBUMIN/GLOBULIN RATIO 1.28; ALKALINE PHOSPHATASE 83 IU/L (42-121); ANION GAP 13 (8-16); ASPARTATE AMINO TRANSFERASE 41 IU/L (15-46); BILIRUBIN,INDIRECT 0.4 mg/dl (0-1.1); BILIRUBIN,TOTAL 0.4 mg/dl (0.2-1.3); BLOOD UREA NITROGEN 16 mg/dl (7-20); CALCIUM 9.5 mg/dl (8.4-10.2); CARBON DIOXIDE 28 mmol/L (21-31); CHLORIDE 97 mmol/L (97-110); CREATINE KINASE 114 IU/L (23-200); CREATININE 0.92 mg/dl (0.61-1.24); GLUCOSE 187 mg/dl (70-220); POTASSIUM 3.7 mmol/L (3.5-5.1); SODIUM 134 mmol/L (135-144); TOTAL PROTEIN 7.3 g/dl (6.1-8.1)
[2017-04-27 07:07] LABS: MAGNESIUM 1.8 mg/dl (1.7-2.5)
[2017-04-27 07:09] LABS: CK INDEX 3.2; PARTIAL THROMBOPLASTIN TIME 28.9 Sec (25.0-35.0)
[2017-04-27 07:21] LABS: CK-MB 3.68 ng/ml (0.0-2.4)
[2017-04-27] MEDS: INSULIN ASPART [NOVOLOG] 3 ML PEN SC ×4 (07:35→21:00)
[2017-04-27 07:39] LABS: PLATELET COUNT 236 10^3/UL (140-440)
[2017-04-27] MEDS: ACETYLCYSTEINE 600 MG CAP PO ×3 (09:00→21:10)
[2017-04-27] MEDS: FAMOTIDINE 20 MG INJ IV ×2 (09:10→21:10)
[2017-04-27] MEDS: INSULIN GLARGINE [LANtus] 3 ML PEN SC (09:13)
[2017-04-27] MEDS ORDERED: POLYMYXIN/BACITRACIN 1L IRRIG (12:05)
[2017-04-27] MEDS ORDERED: KETAMINE 500 MG INJ (12:16)
[2017-04-27] MEDS ORDERED: FENTAnyl 50 MCG/ML VIAL (12:16)
[2017-04-27] MEDS ORDERED: PHENYLephrine (100 MCG/ML) 5ML SYG (12:16)
[2017-04-27] MEDS ORDERED: IODIXANOL LOCM 50 ML BTL (12:26)
[2017-04-27] MEDS ORDERED: SOD CHLORIDE 0.9% 500 ML (12:26)
[2017-04-27] MEDS ORDERED: LIDOCAINE 1%/EPI 30 ML INJ ×2 (12:26→12:33)
[2017-04-27] MEDS ORDERED: CEFAZOLIN 2 GM/50 ML (PMX) 50 ML IVPB (12:26)
[2017-04-27] MEDS ORDERED: MIDAZOLAM 1 MG/ML 2 ML INJ (13:19)
[2017-04-27] MEDS: DIGOXIN 0.125 MG TAB PO (15:54)
[2017-04-27] MEDS: SOD CHLORIDE 0.9% 1,000 ML IV (15:55)
[2017-04-27] MEDS: CEFAZOLIN 1 GM/50 ML (PMX) 50 ML IVPB (21:10)
[2017-04-27] MEDS: ACETAMINOPHEN 650MG/20.3ML CUP PO (22:35)
[2017-04-28] MEDS: ALBUTEROL/IPRATROPIUM (NEB) 3 ML AMP NEB ×6 (01:00→20:20)
[2017-04-28] MEDS: ACCU-CHEK XX (02:00)
[2017-04-28] MEDS: CEFAZOLIN 1 GM/50 ML (PMX) 50 ML IVPB ×2 (05:25→13:42)
[2017-04-28 07:20] LABS: ADD MAN DIFF? NO
[2017-04-28 07:28] LABS: WHITE BLOOD COUNT 9.1 10^3/ul (4.8-10.8)
[2017-04-28 07:28] LABS: BASOPHIL # 0.1 10^3/ul (0.0-0.1); BASOPHILS % 0.7 % (0.0-2.0); EOSINOPHILS # 0.2 10^3/ul (0.0-0.5); EOSINOPHILS % 1.8 % (0.0-7.0); HEMATOCRIT 39.5 % (42.0-52.0); HEMOGLOBIN 13.9 g/dl (14.0-18.0); LYMPHOCYTES # 1.8 10^3/ul (0.8-2.9); LYMPHOCYTES % 19.9 % (15.0-51.0); MEAN CORPUSCULAR HEMOGLOBIN 29.4 pg (29.0-33.0); MEAN CORPUSCULAR HGB CONC 35.2 g/dl (32.0-37.0); MEAN CORPUSCULAR VOLUME 83.5 fl (82.0-101.0); MEAN PLATELET VOLUME 9.7 fl (7.4-10.4); MONOCYTE # 0.9 10^3/ul (0.3-0.9); MONOCYTES % 10.2 % (0.0-11.0); NEUTROPHIL # 5.9 10^3/ul (1.6-7.5); NEUTROPHILS % 65.4 % (39.0-77.0); NUCLEATED RED BLOOD CELLS% 0.2 /100WBC (0.0-0.0); PLATELET COUNT 234 10^3/UL (140-415); RED BLOOD COUNT 4.73 10^6/ul (4.70-6.10); RED CELL DISTRIBUTION WIDTH 13.9 % (11.5-14.5)
[2017-04-28 07:48] LABS: CHOL/HDL RATIO 6.7 RATIO; HDL CHOLESTEROL 31 mg/dl (28-71); LDL CHOLESTEROL,CALCULATED 91 mg/dl; TRIGLYCERIDES 437 mg/dl (0-149)
[2017-04-28 07:48] LABS: CHOLESTEROL 209 mg/dl (100-200)
[2017-04-28 07:52] LABS: DIGOXIN 0.5 ng/ml (1.0-2.0)
[2017-04-28 07:53] LABS: B-TYPE NATRIURETIC PEPTIDE 1320 PG/ML (0-125)
[2017-04-28 08:08] LABS: ALANINE AMINOTRANSFERASE 42 IU/L (13-69); ALBUMIN/GLOBULIN RATIO 1.05; ALKALINE PHOSPHATASE 81 IU/L (42-121); ANION GAP 16 (8-16); ASPARTATE AMINO TRANSFERASE 36 IU/L (15-46); BILIRUBIN,INDIRECT 0.2 mg/dl (0-1.1); BILIRUBIN,TOTAL 0.2 mg/dl (0.2-1.3); BLOOD UREA NITROGEN 18 mg/dl (7-20); CALCIUM 10.3 mg/dl (8.4-10.2); CARBON DIOXIDE 24 mmol/L (21-31); CHLORIDE 97 mmol/L (97-110); CREATININE 0.81 mg/dl (0.61-1.24); GLUCOSE 236 mg/dl (70-220); POTASSIUM 4.2 mmol/L (3.5-5.1); SODIUM 133 mmol/L (135-144); TOTAL PROTEIN 7.8 g/dl (6.1-8.1)
[2017-04-28] MEDS: INSULIN GLARGINE [LANtus] 3 ML PEN SC (08:12)
[2017-04-28] MEDS: INSULIN ASPART [NOVOLOG] 3 ML PEN SC ×5 (08:13→19:58)
[2017-04-28] MEDS: ACETYLCYSTEINE 600 MG CAP PO ×2 (08:19→19:47)
[2017-04-28] MEDS: FAMOTIDINE 20 MG INJ IV ×2 (08:19→19:47)
[2017-04-28 09:59] LABS: MAGNESIUM 1.9 mg/dl (1.7-2.5)
[2017-04-28] MEDS: DIGOXIN 0.125 MG TAB PO (13:42)
[2017-04-28] MEDS: ACETAMINOPHEN 325 MG TAB PO (19:47)
[2017-04-28] MEDS: ATORVASTATIN 40 MG TAB PO (20:28)
[2017-04-28] MEDS: morphine 2 MG INJ IV (20:29)
[2017-04-29] MEDS: ALBUTEROL/IPRATROPIUM (NEB) 3 ML AMP NEB ×6 (01:00→20:48)
[2017-04-29] MEDS: ACCU-CHEK XX (02:00)
[2017-04-29 06:21] LABS: ADD MAN DIFF? NO
[2017-04-29 06:28] LABS: BASOPHIL # 0.1 10^3/ul (0.0-0.1); BASOPHILS % 0.8 % (0.0-2.0); EOSINOPHILS # 0.3 10^3/ul (0.0-0.5); EOSINOPHILS % 2.5 % (0.0-7.0); HEMATOCRIT 37.8 % (42.0-52.0); HEMOGLOBIN 13.4 g/dl (14.0-18.0); LYMPHOCYTES # 2.1 10^3/ul (0.8-2.9); LYMPHOCYTES % 19.6 % (15.0-51.0); MEAN CORPUSCULAR HEMOGLOBIN 29.2 pg (29.0-33.0); MEAN CORPUSCULAR HGB CONC 35.4 g/dl (32.0-37.0); MEAN CORPUSCULAR VOLUME 82.4 fl (82.0-101.0); MEAN PLATELET VOLUME 9.3 fl (7.4-10.4); MONOCYTES % 9.1 % (0.0-11.0); NEUTROPHIL # 7.1 10^3/ul (1.6-7.5); NEUTROPHILS % 65.9 % (39.0-77.0); PLATELET COUNT 222 10^3/UL (140-415); RED BLOOD COUNT 4.59 10^6/ul (4.70-6.10)
[2017-04-29 06:28] LABS: WHITE BLOOD COUNT 10.8 10^3/ul (4.8-10.8)
[2017-04-29] MEDS: morphine 2 MG INJ IV ×2 (06:46→20:04)
[2017-04-29 07:02] LABS: ANION GAP 15 (8-16); BLOOD UREA NITROGEN 18 mg/dl (7-20); CALCIUM 9.9 mg/dl (8.4-10.2); CARBON DIOXIDE 25 mmol/L (21-31); CHLORIDE 102 mmol/L (97-110); CREATININE 0.76 mg/dl (0.61-1.24); GLUCOSE 214 mg/dl (70-220); MAGNESIUM 1.8 mg/dl (1.7-2.5); PHOSPHORUS 3.8 mg/dl (2.5-4.9); POTASSIUM 4.7 mmol/L (3.5-5.1); SODIUM 137 mmol/L (135-144)
[2017-04-29] MEDS: INSULIN ASPART [NOVOLOG] 3 ML PEN SC ×7 (08:04→20:15)
[2017-04-29] MEDS: ACETYLCYSTEINE 600 MG CAP PO ×2 (08:26→20:02)
[2017-04-29] MEDS: FAMOTIDINE 20 MG INJ IV ×2 (08:26→20:02)
[2017-04-29] MEDS: INSULIN GLARGINE [LANtus] 3 ML PEN SC (08:31)
[2017-04-29] MEDS: MAGNESIUM SULFATE 2 GM/50 ML 50 ML IVPB (10:14)
[2017-04-29] MEDS: SPIRONOLACTONE 25 MG TAB PO (10:14)
[2017-04-29] MEDS: LISINOPRIL 10 MG TAB PO (10:22)
[2017-04-29] MEDS: DIGOXIN 0.125 MG TAB PO (12:19)
[2017-04-29] MEDS: ATORVASTATIN 40 MG TAB PO (20:02)
[2017-04-30] MEDS: ALBUTEROL/IPRATROPIUM (NEB) 3 ML AMP NEB ×3 (01:03→09:00)
[2017-04-30] MEDS: morphine 2 MG INJ IV (01:35)
[2017-04-30] MEDS: ACCU-CHEK XX (02:00)
[2017-04-30 06:28] LABS: ADD MAN DIFF? NO
[2017-04-30 06:34] LABS: BASOPHIL # 0.1 10^3/ul (0.0-0.1); BASOPHILS % 0.8 % (0.0-2.0); EOSINOPHILS # 0.4 10^3/ul (0.0-0.5); EOSINOPHILS % 3.9 % (0.0-7.0); HEMATOCRIT 36.6 % (42.0-52.0); HEMOGLOBIN 12.7 g/dl (14.0-18.0); LYMPHOCYTES # 2.5 10^3/ul (0.8-2.9); LYMPHOCYTES % 23.5 % (15.0-51.0); MEAN CORPUSCULAR HEMOGLOBIN 28.9 pg (29.0-33.0); MEAN CORPUSCULAR HGB CONC 34.7 g/dl (32.0-37.0); MEAN CORPUSCULAR VOLUME 83.4 fl (82.0-101.0); MEAN PLATELET VOLUME 9.4 fl (7.4-10.4); MONOCYTE # 1.2 10^3/ul (0.3-0.9); MONOCYTES % 10.8 % (0.0-11.0); NEUTROPHIL # 6.1 10^3/ul (1.6-7.5); NEUTROPHILS % 56.6 % (39.0-77.0); PLATELET COUNT 192 10^3/UL (140-415); RED BLOOD COUNT 4.39 10^6/ul (4.70-6.10); RED CELL DISTRIBUTION WIDTH 14.4 % (11.5-14.5)
[2017-04-30 06:34] LABS: WHITE BLOOD COUNT 10.8 10^3/ul (4.8-10.8)
[2017-04-30 06:50] LABS: ALANINE AMINOTRANSFERASE 41 IU/L (13-69); ALBUMIN 3.9 g/dl (3.3-4.9); ALBUMIN/GLOBULIN RATIO 1.21; ALKALINE PHOSPHATASE 78 IU/L (42-121); ANION GAP 15 (8-16); ASPARTATE AMINO TRANSFERASE 27 IU/L (15-46); BILIRUBIN,INDIRECT 0.2 mg/dl (0-1.1); BILIRUBIN,TOTAL 0.2 mg/dl (0.2-1.3); BLOOD UREA NITROGEN 21 mg/dl (7-20); CALCIUM 9.5 mg/dl (8.4-10.2); CARBON DIOXIDE 23 mmol/L (21-31); CHLORIDE 103 mmol/L (97-110); CREATININE 0.74 mg/dl (0.61-1.24); GLUCOSE 204 mg/dl (70-220); POTASSIUM 4.8 mmol/L (3.5-5.1); SODIUM 136 mmol/L (135-144); TOTAL PROTEIN 7.1 g/dl (6.1-8.1)
[2017-04-30 06:57] LABS: B-TYPE NATRIURETIC PEPTIDE 649 PG/ML (0-125)
[2017-04-30 07:05] LABS: DIGOXIN 0.5 ng/ml (1.0-2.0)
[2017-04-30] MEDS: ACETYLCYSTEINE 600 MG CAP PO (08:20)
[2017-04-30] MEDS: LISINOPRIL 10 MG TAB PO (08:20)
[2017-04-30] MEDS: FUROSEMIDE 40 MG TAB PO (08:20)
[2017-04-30] MEDS: FAMOTIDINE 20 MG INJ IV (08:21)
[2017-04-30] MEDS: SPIRONOLACTONE 25 MG TAB PO (08:21)
[2017-04-30] MEDS: INSULIN GLARGINE [LANtus] 3 ML PEN SC (08:31)
[2017-04-30] MEDS: INSULIN ASPART [NOVOLOG] 3 ML PEN SC ×4 (08:31→12:31)
== END 2017-04-30 13:06 | disposition home or self-care (01) | DRG 225 ==
LOC: TEL 04-28 01:00 → E/R 03:40 → ICU 05:52
PROC: 0JH608Z Insertion of Defibrillator Generator into Chest Subcutaneous Tissue and Fascia, Open Approach (ICD-10-PCS; principal; 2017-04-27 12:30)
PROC: 02HK3KZ Insertion of Defibrillator Lead into Right Ventricle, Percutaneous Approach (ICD-10-PCS; 2017-04-27 12:30)
PROC: 4A023N7 Measurement of Cardiac Sampling and Pressure, Left Heart, Percutaneous Approach (ICD-10-PCS; 2017-04-27 12:30)
PROC: 02H63KZ Insertion of Defibrillator Lead into Right Atrium, Percutaneous Approach (ICD-10-PCS; 2017-04-27 12:30)
PROC: B211YZZ Fluoroscopy of Multiple Coronary Arteries using Other Contrast (ICD-10-PCS; 2017-04-27 12:30)
PROC: 5A2204Z Restoration of Cardiac Rhythm, Single (ICD-10-PCS; 2017-04-27 12:44)
PROC: 5A09357 Assistance with Respiratory Ventilation, Less than 24 Consecutive Hours, Continuous Positive Airway Pressure (ICD-10-PCS; 2017-04-27 12:44)
DX: I47.2 Ventricular tachycardia (principal); R65.10 Systemic inflammatory response syndrome (SIRS) of non-infectious origin without acute organ dysfunction; I42.9 Cardiomyopathy, unspecified; I11.0 Hypertensive heart disease with heart failure; E11.65 Type 2 diabetes mellitus with hyperglycemia; I50.22 Chronic systolic (congestive) heart failure; E87.1 Hypo-osmolality and hyponatremia; I25.82 Chronic total occlusion of coronary artery; G89.4 Chronic pain syndrome; F17.200 Nicotine dependence, unspecified, uncomplicated; I25.10 Atherosclerotic heart disease of native coronary artery without angina pectoris; Z95.5 Presence of coronary angioplasty implant and graft; Z91.14 Patient's other noncompliance with medication regimen; Z79.4 Long term (current) use of insulin
CPT/HCPCS: 33249; 36415; 36600; 71045; 74176; 80048; 80053; 80061; 80162; 80306; 80307; 81003; 82550; 82553; 82803; 82962; 83036; 83690; 83735; 83880; 84100; 84439; 84443; 84484; 85025; 85049; 85610; 85670; 85730; 87040; 87081; 93005; 93306; 93458; 94640; 94660; 96372; 96374; 96375; 96376; 99291-25